=== PATIENT | female | born 1960 | race Caucasian/White ===

== ENCOUNTER → 2019-12-11 12:06 | Outpatient (CLI) | payer OTHER, SELFPAY ==
--- NOTE | ~2019-12-11 | US_ITS ---
EXAMINATION: US right upper quadrant EXAM DATE: 12/11/2019 12:23 INDICATION: Calculus of bile duct without cholangitis or cholecystitis. Right upper quadrant pain. TECHNIQUE: Multiple grayscale and Doppler images of the abdomen right upper quadrant were obtained (b y a technologist who performed the scan) and subsequently reviewed. There is no prior study for renetta beyer. FINDINGS: The pancreatic head and body are normal in appearance. The pancreatic tail is not visualized. The l iver has normal echogenicity and contour. There are no focal liver lesions identified. There is no evidence of intrahepatic biliary duct dilation. Portal venous flow was seen in the hepatopedal, nor mal direction and has normal Doppler waveform. No right-sided hydronephrosis. Common bile duct measures 4 mm, which is normal. The gallbladder wall is normal in thickness, with ex pected amount of distention. No sonographic evidence of pericholecystic fluid. There is no cholelit hiases. Technologist performing exam reports patient did not demonstrate sonographic Barclay's sign. Please note that this sign is less reliable in patients who have received pain medication. IMPRESSION: 1. Unremarkable abdominal ultrasound exam. Reviewed, dictated and finalized at location B.
== END ==
PROVIDERS: PCP Family Medicine; Visit Provider Family Medicine
DX: K80.50 Calculus of bile duct without cholangitis or cholecystitis without obstruction (principal)
CPT/HCPCS: 76705

== ENCOUNTER 2020-05-13 15:02 | Emergency (ER) | payer OTHER, SELFPAY ==
--- NOTE | ~2020-05-13 | XR_ITS ---
EXAMINATION: XR foot LT min 3V DATE: 05/13/2020 15:23 INDICATION: Left foot pain laterally. TECHNIQUE: 4 views of left foot were obtained. COMPARISON: None. FINDINGS: Bone alignment is normal. No fracture. There is mild osteoarthritis of first metatarsophala ngeal joint and some of the interphalangeal joints and midfoot joints. There are enthesophytes at the posterior and plantar aspects of calcaneal tuberosity. IMPRESSION: 1. Mild polyarticular osteoarthritis. Reviewed, dictated and finalized at location A. EOTYPE FINISHER
--- NOTE | 2020-05-13 15:06 | ED.EXTPRO ---
HPI - Extremity Problem General Chief complaint: Extremity Injury, Lower Stated complaint: lt foot pain Time Seen by Provider: 05/13/20 15:12 Source: patient and RN notes reviewed Mode of arrival: ambulatory Limitations: no limitations History of Present Illness HPI Narrative: 60-year-old female presents with concern for left foot pain. Reports pain at the lateral edge of the foot below the ankle that radiates distally. She denies any known injury or trauma. Reports history of stress fracture in her right foot. Denies bruising, redness, swelling. Denies intervention. Reports pain at rest, worsening pain with range of motion and weightbearing. MD Complaint: extremity pain Related Data Home Medications Medication Instructions Recorded Confirmed aspirin 325 mg tablet 325 mg PO DAILY 02/06/19 09/01/19 Allergies Allergy/AdvReac Type Severity Reaction Status Date / Time levofloxacin Allergy Mild unknown Verified 05/13/20 15:07 clarithromycin Allergy Unknown unknown Verified 05/13/20 15:07 telithromycin Allergy Unknown unknown Verified 05/13/20 15:07 MICROFLEXIN Allergy Unknown unknown Uncoded 05/13/20 15:07 Review of Systems Review of Systems: Narrative: CONSTITUTIONAL: Denies malaise, chills, sweats, or fever. SKIN: Denies abrasions, lacerations, erythema MUSCULOSKELETAL: Reports left lateral foot pain, denies edema NEUROLOGIC: Denies numbness, weakness All systems reviewed & are unremarkable except as noted in HPI and below PMFSH Past Medical History Medical History (Updated 05/13/20 @ 15:34 by Mandi Ortiz NP) Biliary colic History of vaginal delivery x 2 Viral gastroenteritis Surgical History Surgical History History of angioplasty History of hysterectomy History of myomectomy Family History Family History Mother Hypertension Patient's mother is in good health Grandparent Acute myocardial infarction Family history of malignant melanoma Family history of lung cancer Family history of primary malignant neoplasm of liver Family history of malignant neoplasm of breast Father Family history of throat cancer Social History Social History Smoking status: Heavy tobacco smoker Second hand tobacco smoke exposure: No Alcohol intake: never Comments At time of signature, agree with nursing past medical, surgical, social and family history. There is no relevant family history pertinent to the presenting complaint Exam Narrative: Exam Narrative: GENERAL: Well-appearing, well-nourished, and in no acute distress. HEAD: Normocephalic, atraumatic. EYES: PERRLA, conjunctivae clear NECK: Supple. CHEST: Speaks in full sentences. No respiratory distress. HEART: Regular rate and rhythm. Normal and equal peripheral pulses. EXTREMITIES: Left foot and digits have normal strength and sensation, normal range of motion. No edema or ecchymosis. 5/5 strength with ankle and digit flexion and extension. Normal sensation with sensitivity to light touch and pain. No point tenderness. Pain radiating from the proximal lateral dorsal aspect of the foot to the distal aspect of the foot, worse with flexion of ankle, no pain with flexion of digits. No open wounds, no skin tenting, no devitalized tissue or atrophy, no trophic changes, no obvious deformity, alignment normal, nearby joints and structures intact. Distal pulses palpable and equal bilaterally, skin warm, dry, pink. Capillary refill less than 3 seconds. SKIN: Warm, dry, no rash. NEURO: Alert and oriented x3. PSYCH: Normal mood and affect Course Course Emergency Course: Patient is aware of diagnosis, understands and agrees to treatment plan. Anticipatory guidance given. Patient agrees to follow-up as directed and is aware of reasons to seek care at the emergency department. Portions of this re
[2020-05-13 15:07] VITALS: BP 118/68; PULSE 65; RESP 24; TEMP 36.7; O2SAT 100
== END 2020-05-13 15:45 | disposition home or self-care (01) ==
PROVIDERS: Emergency Provider Nurse Practitioner; PCP Family Medicine
DX: M79.672 Pain in left foot (principal); F17.200 Nicotine dependence, unspecified, uncomplicated; Z95.1 Presence of aortocoronary bypass graft
CPT/HCPCS: 73630; 99213; G0463

== ENCOUNTER 2020-08-18 15:45 | Outpatient (CLI) | payer OTHER, SELFPAY ==
--- NOTE | ~2020-08-18 | MM_ITS ---
EXAMINATION: MM screening mirna BI w yvonne HISTORY: Screening mammogram TECHNIQUE: Craniocaudal and mediolateral oblique 3-D tomosynthesis images were obtained and synthetic 2-D images were generated. CAD analysis was submitted and interpreted. COMPARISON: No prior mammogram is available for comparison at this institution. BREAST PARENCHYMAL COMPOSITION: The breasts are almost entirely fatty. FINDINGS: RIGHT BREAST: There is no evidence of suspicious mass, calcification, or architectural distortion to suggest malignancy. LEFT BREAST: There is a possible mass in the subareolar aspect of the breast best appreciated on the craniocaudal view. There is also questionable architectural distortion in the middle third of the giovani ast at the 12:00 location. IMPRESSION: 1. Left breast findings as described above. 2. Additional mammographic views and possible breast ultrasound are recommended. BI-RADS Category 0: Incomplete: Needs additional imaging evaluation. Reviewed, dictated and finalized at location A. IMPRESSION: 1. Left breast findings as described above. 2. Additional mammographic views and possible breast ultrasound are recommended . BI-RADS Category 0: Incomplete: Needs additional imaging evaluation.
== END 2020-08-18 15:46 | disposition home or self-care (01) ==
LOC: ANHIMG 15:47
PROVIDERS: PCP Family Medicine; Visit Provider Student in an Organized Health Care Education/Training Program
DX: Z12.31 Encounter for screening mammogram for malignant neoplasm of breast (principal); R92.8 Other abnormal and inconclusive findings on diagnostic imaging of breast
CPT/HCPCS: 77063; 77067

== ENCOUNTER 2020-10-05 12:52 | Outpatient (CLI) | payer OTHER, SELFPAY ==
--- NOTE | ~2020-10-05 | MMUS_ITS ---
EXAMINATION: MM diagnostic mirna LT w yvonne, US breast LT limited HISTORY: Follow-up possible left breast mass TECHNIQUE: Additional 3-D tomosynthesis images of the left breast were performed and synthetic 2-D im ages were generated. CAD analysis was submitted and interpreted. High resolution Limited left breast ultrasound was performed. COMPARISON: 08/18/2020 BREAST PARENCHYMAL COMPOSITION: BREAST PARENCHYMAL COMPOSITION: There are scattered areas of fibroglandular density. FINDINGS: MAMMOGRAPHIC FINDINGS: No discrete mass, architectural distortion or suspicious calcifications are identified to suggest mal ignancy. ULTRASOUND: Limited left breast ultrasound: Normal heterogeneous echotexture without focal solid or cystic mass. IMPRESSION: 1. No evidence for malignancy in the left breast. 2. Routine yearly screening mammogram and regular clinical breast examination are recommended. BI-RADS Category 1: Negative Reviewed, dictated and finalized at location A. IMPRESSION: 1. No evidence for malignancy in the left breast. 2. Routine yearly screening mammogram and regular clinical breast examination a re recommended. BI-RADS Category 1: Negative
== END 2020-10-05 12:53 | disposition home or self-care (01) ==
LOC: ANHIMG 12:53
PROVIDERS: PCP Family Medicine; Visit Provider Student in an Organized Health Care Education/Training Program
DX: R92.8 Other abnormal and inconclusive findings on diagnostic imaging of breast (principal)
CPT/HCPCS: 76642; 77061; 77065; G0279

== ENCOUNTER → 2021-04-20 14:13 | Outpatient (CLI) | payer OTHER, SELFPAY ==
--- NOTE | ~2021-04-20 | XR_ITS ---
XR tibia fibula RT 2V DATE: 04/20/2021 14:31 INDICATION: Right leg posterior and medial pain. No injury. TECHNIQUE: AP and lateral views COMPARISON: None FINDINGS: There is enthesopathy of the patella at the patellar tendon insertion. There is mild plantar and posterior calcaneal enthesopathy. No fracture or dislocation, periosteal reaction or bone destruction of the tibia or fibula. Normal al ignment at the knee and ankle joints. IMPRESSION: No significant abnormality of the tibia or fibula Plantar and posterior calcaneal enthesopathy Reviewed, dictated and finalized at location B. 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
== END ==
PROVIDERS: PCP Family Medicine; Visit Provider Family Medicine
DX: M79.604 Pain in right leg (principal); M77.31 Calcaneal spur, right foot
CPT/HCPCS: 73590

== ENCOUNTER 2021-06-08 15:07 | Outpatient (CLI) | payer OTHER, SELFPAY ==
--- NOTE | ~2021-06-08 | XR_ITS ---
EXAMINATION: XR hip RT 2V w AP pelvis DATE: 06/08/2021 15:31 INDICATION: Right posterior hip pain. TECHNIQUE: An anteroposterior view of the pelvis and 2 views of right hip were obtained. COMPARISON: CT abdomen and pelvis 07/31/2011 FINDINGS: There is lumbar dextrocurvature and severe spondylosis. No fracture. There is mild osteoart hritis of the hips. IMPRESSION: 1. Mild osteoarthritis of the hips. Reviewed, dictated and finalized at location A.
== END 2021-06-08 15:08 | disposition home or self-care (01) ==
PROVIDERS: PCP Family Medicine; Visit Provider Family Medicine
DX: M16.0 Bilateral primary osteoarthritis of hip (principal)
CPT/HCPCS: 73502

== ENCOUNTER 2021-06-09 18:02 | Outpatient (CLI) | payer OTHER, SELFPAY ==
--- NOTE | ~2021-06-09 | XR_ITS ---
XR lumbar spine min 4V DATE: 06/09/2021 18:22 INDICATION: Low back pain. Lumbago with sciatica. TECHNIQUE: AP, lateral, bilateral oblique views, coned lateral lumbosacral view COMPARISON: None FINDINGS: There is diffuse osteopenia. There is mild dextroscoliosis of the lumbar and lower thoracic spine. There is minimal grade 1 anterolisthesis at L3-4 and L4-5 due to degenerative change at the apophysea l joints. No spondylolysis is evident. The included lower thoracic and lumbar pedicles are intact. No fracture or bone destruction or spondy lolisthesis. There is prominent degenerative disc disease at L5-S1, moderate loss of interspace height at L1 to an d L3-4. The sacroiliac joints are intact. IMPRESSION: Mild dextro scoliosis Osteopenia Multilevel degenerative disc disease, radius at L5-S1 Degenerative changes apophyseal joints with minimal grade 1 anterolisthesis at L3-4 and L4-5 Reviewed, dictated and finalized at location A.
== END 2021-06-09 18:03 | disposition home or self-care (01) ==
PROVIDERS: PCP Family Medicine; Visit Provider Family Medicine
DX: M85.88 Other specified disorders of bone density and structure, other site (principal); M51.37 Other intervertebral disc degeneration, lumbosacral region
CPT/HCPCS: 72110

== ENCOUNTER 2021-10-18 06:53 | Outpatient (CLI) | payer OTHER, SELFPAY ==
--- NOTE | ~2021-10-18 | CT_ITS ---
EXAMINATION: CT lung screening DATE: 10/18/2021 07:19 INDICATION: Smoker. Personal history of tobacco dependence. TECHNIQUE: Computed tomography (CT) of the chest was performed without intravenous contrast. The dose -length product was 75.14 mGy-cm. Automated exposure control and iterative reconstruction technique w ere employed. COMPARISON: None FINDINGS: No significant pleural or pericardial effusion. Heart size normal. There is evidence for ch ronic granulomatous disease in the mediastinum and lung parenchyma. No thoracic lymphadenopathy. Ther e is atherosclerosis of the aorta and coronary arteries. The upper abdomen is unremarkable. There is mild emphysema. There are a few small noncalcified pulmonary nodules measuring 2 mm or less. No focal consolidation. No endobronchial lesions. No pneumothorax. Moderate thoracic spondylosis with accentu ated thoracic kyphosis. IMPRESSION: 1. Lung-RADS category 2: Benign appearance or behavior. Continue annual screening with noncontrast lo w-dose chest CT in 12 months. Reviewed, dictated and finalized at location B. IMPRESSION: 1. Lung-RADS category 2: Benign appearance or behavior. Continue annual screeni ng with noncontrast low-dose chest CT in 12 months.
== END 2021-10-18 06:54 | disposition home or self-care (01) ==
PROVIDERS: PCP Family Medicine; Visit Provider Nurse Practitioner Family
DX: Z12.2 Encounter for screening for malignant neoplasm of respiratory organs (principal); Z87.891 Personal history of nicotine dependence
CPT/HCPCS: 71271

== ENCOUNTER 2021-12-21 18:36 | Emergency (ER) | payer OTHER, SELFPAY ==
--- NOTE | ~2021-12-21 | XR_ITS ---
EXAMINATION: XR chest 2V Exam Date/Time: 12/21/2021 18:49 CDT HISTORY: cough x 3 days, smoker Comparison: 07/30/2017. RESULT: Lines, tubes, and devices: None. Lungs and pleura: Clear. Cardiomediastinal silhouette: Stable. Other: No acute osseous or upper abdominal finding. IMPRESSION: No acute cardiopulmonary process. Reviewed, dictated and finalized at location K.
[2021-12-21 18:43] VITALS: BP 118/64; PULSE 71; RESP 16; TEMP 36.4; O2SAT 98
--- NOTE | 2021-12-21 18:52 | ED.URI ---
HPI - URI/Sore Throat General Chief Complaint: Upper Respiratory Infection Stated Complaint: cough, chest pain Time Seen by Provider: 12/21/21 18:57 History of Present Illness HPI Narrative: 66 y/o female presented for c/o cough and chest congestion for about 3 days. States chest feels tight with breathing. Cough was productive at onset. Her grandson who lives with her was recently diagnosed with RSV and pneumonia. Patient smokes 1PPD >50 years. Denies associated chest pain, palpitations, shortness of breath, wheezing, dizziness, n/v/d/f/c. Not taking anything for symptoms. Hx HTN, CAD and PTCI. Related Data Home Medications Medication Instructions Recorded Confirmed cholecalciferol (vitamin D3) 125 5,000 unit PO DAILY 08/30/20 12/21/21 mcg (5,000 unit) capsule risankizumab-rzaa 75 mg/0.83 mL 150 mg subcut . Q three-month 08/30/20 12/21/21 subcutaneous syringe (Skyrizi) mecobalamin (vitamin B12) 1,000 2,000 mcg sublingual DAILY 10/05/21 12/21/21 mcg disintegrating tablet,sublingual aspirin 81 mg tablet,delayed 81 mg PO DAILY 12/21/21 12/21/21 release atorvastatin 40 mg tablet 80 mg PO DAILY 12/21/21 12/21/21 bupropion HCl (smoking deter) 150 150 mg PO BID 12/21/21 12/21/21 mg tablet,12 hr sustained-release(smoking deterrent) Allergies Allergy/AdvReac Type Severity Reaction Status Date / Time levofloxacin Allergy Mild unknown Verified 12/21/21 18:48 clarithromycin Allergy Unknown unknown Verified 12/21/21 18:48 telithromycin Allergy Unknown unknown Verified 12/21/21 18:48 MICROFLEXIN Allergy Unknown unknown Uncoded 10/21/21 14:15 [facility] Past Medical History Medical History Acute pain of right lower extremity Acute right hip pain X-ray of the right hip on 06/09/2021 reveals mild osteoarthritis with severe lumbar spondylosis noted. Acute right-sided low back pain with sciatica X-ray of the lumbar spine on 06/09/2021 with diffuse osteopenia, mild scoliosis, significant degenerative disc disease at L5-S1 with moderate degenerative changes throughout. Acute sinusitis, unspecified B12 deficiency Biliary colic BMI 29.0-29.9,adult BMI 30.0-30.9,adult BMI 31.0-31.9,adult Colon cancer screening History of vaginal delivery x 2 Hyperlipidemia Hypertension CHING (obstructive sleep apnea) Screening for lung cancer Snoring Strain of right calf muscle Viral gastroenteritis Vitamin D deficiency Surgical History Surgical History History of angioplasty History of hysterectomy History of myomectomy Family History Family History Mother Hypertension Patient's mother is in good health Grandparent Acute myocardial infarction Family history of malignant melanoma Family history of lung cancer Family history of primary malignant neoplasm of liver Family history of malignant neoplasm of breast Father Family history of throat cancer Social History Social History Smoking packs per day: 1 Smoking cigarettes per day: 20.0 Years smoked: 33 Smoking pack-years: 33.00 Smoking status: Current every day smoker Tobacco type: cigarettes Second hand tobacco smoke exposure: No Alcohol intake: never Substance use: never Substance use type: does not use Course Course Level of Care: Express Care Visit Vital Signs Vital signs: Vital Signs Temperature 97.6 F 12/21/21 18:43 Pulse Rate 71 12/21/21 18:43 Respiratory Rate 16 12/21/21 18:43 Blood Pressure 118/64 12/21/21 18:43 Pulse Oximetry 98 12/21/21 18:43 Temperature 97.6 F 12/21/21 18:43 Pulse Rate 71 12/21/21 18:43 Respiratory Rate 16 12/21/21 18:43 Blood Pressure 118/64 12/21/21 18:43 Pulse Oximetry 98 12/21/21 18:43 MDM - URI/Sore Throat MDM Narrative Medical decisi
== END 2021-12-21 19:10 | disposition home or self-care (01) ==
PROVIDERS: Emergency Provider Nurse Practitioner Family; PCP Family Medicine
DX: J40 Bronchitis, not specified as acute or chronic (principal); F17.210 Nicotine dependence, cigarettes, uncomplicated; E78.5 Hyperlipidemia, unspecified; I10 Essential (primary) hypertension; G47.33 Obstructive sleep apnea (adult) (pediatric); E55.9 Vitamin D deficiency, unspecified; E53.8 Deficiency of other specified B group vitamins
CPT/HCPCS: 71046; 99213; G0463

== ENCOUNTER 2022-01-30 16:09 | Emergency (ER) | payer OTHER, SELFPAY ==
--- NOTE | 2022-01-30 16:12 | ED.URI ---
HPI - URI/Sore Throat General Chief Complaint: Chest Pain Stated Complaint: CHEST PAIN Time Seen by Provider: 01/30/22 16:16 Source: patient and RN notes reviewed History of Present Illness HPI Narrative: Patient is a 61-year-old female who presents to urgent care with complaints of substernal chest pain that started today. Patient states that it feels like pressure and is exacerbated with movement. Patient does have a history of coronary artery disease with 1 stent placed. Patient states that she did take her medication today. Patient is not currently on a blood thinner with the exception of 81 mg aspirin. Patient denies any radiation of the pain. No other acute complaints. No acute distress noted. Patient aware of the plan of care. Some parts of this dictation were generated by voice recognition software and may contain typographical and/or grammatical inaccuracies. Related Data Home Medications Medication Instructions Recorded Confirmed cholecalciferol (vitamin D3) 125 5,000 unit PO DAILY 08/30/20 01/30/22 mcg (5,000 unit) capsule risankizumab-rzaa 75 mg/0.83 mL 150 mg subcut . Q three-month 08/30/20 01/30/22 subcutaneous syringe (Skyrizi) mecobalamin (vitamin B12) 1,000 2,000 mcg sublingual DAILY 10/05/21 01/30/22 mcg disintegrating tablet,sublingual aspirin 81 mg tablet,delayed 81 mg PO DAILY 12/21/21 01/30/22 release atorvastatin 40 mg tablet 80 mg PO DAILY 12/21/21 01/30/22 Allergies Allergy/AdvReac Type Severity Reaction Status Date / Time levofloxacin Allergy Mild unknown Verified 12/21/21 18:48 clarithromycin Allergy Unknown unknown Verified 12/21/21 18:48 telithromycin Allergy Unknown unknown Verified 12/21/21 18:48 MICROFLEXIN Allergy Unknown unknown Uncoded 10/21/21 14:15 Review of Systems Review of Systems: CONSTITUTIONAL: Denies fever, chills, or sweats. EYES: Denies visual changes, redness, or discharge. ENT: Denies rhinorrhea, congestion, sore throat, or otalgia. CARDIOVASCULAR: Reports of chest pain RESPIRATORY: Denies cough or dyspnea. GASTROINTESTINAL: Denies abdominal pain, nausea, vomiting, or diarrhea. GENITOURINARY: Denies dysuria or hematuria. SKIN: Denies rash or itching. MUSCULOSKELETAL: Denies back pain, joint pain, or myalgia. NEUROLOGIC: Denies headache, numbness, or weakness. All other systems reviewed are negative, except as documented in HPI. [facility] Past Medical History Medical History Acute pain of right lower extremity Acute right hip pain X-ray of the right hip on 06/09/2021 reveals mild osteoarthritis with severe lumbar spondylosis noted. Acute right-sided low back pain with sciatica X-ray of the lumbar spine on 06/09/2021 with diffuse osteopenia, mild scoliosis, significant degenerative disc disease at L5-S1 with moderate degenerative changes throughout. Acute sinusitis, unspecified B12 deficiency Biliary colic BMI 29.0-29.9,adult BMI 30.0-30.9,adult BMI 31.0-31.9,adult Colon cancer screening History of vaginal delivery x 2 Hyperlipidemia Hypertension CHING (obstructive sleep apnea) Screening for lung cancer Snoring Strain of right calf muscle Viral gastroenteritis Vitamin D deficiency Surgical History Surgical History History of angioplasty History of hysterectomy History of myomectomy Family History Family History Mother Hypertension Patient's mother is in good health Grandparent Acute myocardial infarction Family history of malignant melanoma Family history of lung cancer Family history of primary malignant neoplasm of liver Family history of malignant neoplasm of breast Father Family history of throat cancer Social History Social History Smoking packs per day: 1 Smoking cigarettes per day: 20.0 Years smo
[2022-01-30 16:14] VITALS: BP 113/64; PULSE 60; RESP 16; TEMP 35.9; O2SAT 100
--- NOTE | 2022-01-30 16:42 | ECG_ITS ---
Measurements Intervals [place] Rate: 60 P: 64 [place]: 171 QRS: 67 QRSD: 94 T: 45 QT: 417 QTc: 418 Interpretive Statements SINUS RHYTHM POSSIBLE LEFT ATRIAL ENLARGEMENT INCOMPLETE RIGHT BUNDLE BRANCH BLOCK BORDERLINE ECG NO PREVIOUS ECG AVAILABLE FOR COMPARISON Electronically Signed On 01-30-2022 17:55:29 SPECIAL EDUCATION TEACHING ASSISTANT by Shashi Sterling D.O.
== END 2022-01-30 16:32 | disposition short-term general hospital (02) ==
PROVIDERS: Emergency Provider Nurse Practitioner Family; PCP Family Medicine
DX: R07.9 Chest pain, unspecified (principal); I25.10 Atherosclerotic heart disease of native coronary artery without angina pectoris; E78.5 Hyperlipidemia, unspecified; I10 Essential (primary) hypertension; F17.210 Nicotine dependence, cigarettes, uncomplicated; Z79.82 Long term (current) use of aspirin
CPT/HCPCS: 93005; 99213; G0463

== ENCOUNTER 2022-01-30 16:52 | Emergency (ER) | payer OTHER, SELFPAY ==
[2022-01-30] VITALS (15 sets, daily range): BP systolic 119–167; BP diastolic 62–99; PULSE 61–81; RESP 17–26; TEMP 36.6–36.8; O2SAT 97–99
--- NOTE | ~2022-01-30 | CT_ITS ---
EXAMINATION: CT abdomen pelvis w con DATE: 01/30/2022 22:25 INDICATION: Epigastric abdominal pain TECHNIQUE: Computed tomography (CT) of the abdomen and pelvis was performed with 100 mL Omnipaque-350 intravenous contrast. Automated exposure control and iterative reconstruction technique were employe d. The dose-length product was 462.61 mGy-cm. COMPARISON: 07/31/2011, x-ray chest 01/30/2022. FINDINGS: Lower thorax: Diffuse mild reticulonodular opacities as can be seen with bronchiolitis. Coronary ana rosa ry calcification. Liver: Normal. Biliary/Gallbladder: Gallbladder is normal. No bile duct dilation. Pancreas: No mass or duct dilation. Spleen: Granulomatous calcifications Adrenals:No mass. Kidneys: Multiple left renal hypodensities, too small to characterize. No obstructing calculi or hydr onephrosis. GI tract: Distal esophageal and gastric wall edema. No small or large bowel dilation. Normal appendix . Diverticulosis without diverticulitis. Mesentery/Peritoneum: No ascites, mass, or free air. Retroperitoneum: No mass. Atherosclerotic abdominal aortic and/or arterial calcifications. Pelvis: Normal-appearing urinary bladder. Uterus is absent. Soft Tissues: Soft tissues and body wall unremarkable. Bones: No acute osseous finding. Unchanged anterior right femoral neck benign bone lesion. IMPRESSION: Respiratory bronchiolitis. Esophagitis/gastritis. Otherwise, no acute abdominopelvic process detected . Reviewed, dictated and finalized at location K. EGE ADMISSIONS COUNSELOR IMPRESSION: Respiratory bronchiolitis. Esophagitis/gastritis. Otherwise, no acute abdominop elvic process detected.
--- NOTE | ~2022-01-30 | XR_ITS ---
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 Comparison: 12/21/2021. RESULT: Lines, tubes, and devices: None. Lungs and pleura: Diffuse reticulonodular opacities. No focal consolidation, pneumothorax, or large effusion. Cardiomediastinal silhouette: Stable. Other: No acute osseous or upper abdominal finding. IMPRESSION: Pulmonary opacities may represent bronchiolitis, as can be seen with atypical infection, asthma, aspi ration, and small airways disease. Reviewed, dictated and finalized at location K. ER SECURITY ADMINISTRATOR IMPRESSION: Pulmonary opacities may represent bronchiolitis, as can be seen with atypical i nfection, asthma, aspiration, and small airways disease.
--- NOTE | 2022-01-30 17:39 | ECG_ITS ---
Measurements Intervals [place] Rate: 62 P: 66 [place]: 184 QRS: 69 QRSD: 96 T: 47 QT: 416 QTc: 423 Interpretive Statements SINUS RHYTHM POSSIBLE LEFT ATRIAL ENLARGEMENT INCOMPLETE RIGHT BUNDLE BRANCH BLOCK BORDERLINE ECG NO PREVIOUS ECG AVAILABLE FOR COMPARISON Electronically Signed On 01-31-2022 8:50:09 MOLD FINISHER by Shashi Sterling D.O.
[2022-01-30 17:56] LABS: Basophils Absolute Auto 0.1 K/mm3 (0.0-0.1); Basophils Percent Auto 0.8 % (0.2-1.2); Eosinophils Absolute Auto 0.3 K/mm3 (0-0.3); Eosinophils Percent Auto 2.3 % (0-4.4); Hematocrit 47.2 % (37.0-47.0); Hemoglobin 15.5 g/dL (12.0-15.0); Immature Granulocyte Absolute 0.03 K/mm3 (0.00-0.031); Immature Granulocyte Percent A 0.3 % (0-0.5); Lymphocytes Absolute Auto 3.24 K/mm3 (0.9-3.2); Lymphocytes Percent Auto 29.7 % (18.3-44.2); Mean Corpuscular HGB Conc 32.8 g/dl (32-36); Mean Corpuscular Hemoglobin 30.3 pg (26-34); Mean Corpuscular Volume 92.2 fl (80-100); Mean Platelet Volume 12.4 fl (7.4-10.4); Monocytes Absolute Auto 0.7 K/mm3 (0.1-0.6); Monocytes Percent Auto 6.8 % (2.6-8.5); Neutrophils Absolute Auto 6.6 K/mm3 (1.3-6.7); Neutrophils Percent Auto 60.1 % (45.5-73.1); Platelet Count Result 175 k/mm3 (150-375); Red Blood Count 5.12 M/mm3 (4.2-5.4); White Blood Count 10.9 K/mm3 (4.5-10.0)
[2022-01-30 18:07] LABS: Alanine Aminotransferase 13 U/L (6-35); Albumin Level 4.2 g/dL (3.5-5.1); Alkaline Phosphatase 102 U/L (38-126); Anion Gap 10 mmol/L (8-16); Aspartate Amino Transferase 20 U/L (14-36); Bilirubin,Total 0.5 mg/dL (0.2-1.3); Blood Urea Nitrogen 17 mg/dL (7-17); Calcium 8.7 mg/dL (8.4-10.2); Carbon Dioxide 24 mmol/L (22-30); Chloride 101 mmol/L (98-107); Estimated CRCL calculation 51 ml/min; Estimated Glomerular Filt Rate > 60; Glucose 100 mg/dL (65-110); Lipase 62 U/L (23-300); Sodium 135 mmol/L (137-145)
[2022-01-30 18:12] LABS: INR 1.1; Prothrombin Time 13.5 Seconds (11.1-14.7)
[2022-01-30 18:13] LABS: Partial Thromboplastin Time 31.2 SECONDS (22.3-36.8)
[2022-01-30 18:18] LABS: Troponin I < 0.012 ng/mL (0.000-0.034)
--- NOTE | 2022-01-30 21:52 | ED.ABDPAIN ---
HPI - Abdominal Pain General Chief Complaint: Chest Pain Stated Complaint: CHEST PAIN Time Seen by Provider: 01/30/22 21:29 History of Present Illness HPI narrative: This is a 61-year-old female with past medical history of hypertension and coronary artery disease, who presents emergency department complaining of sharp epigastric abdominal pain beginning approximately 7 hours ago. 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 It is aggravated by movement and alleviated with rest. She says this is not similar to previous chest pain. Related Data Home Medications Medication Instructions Recorded Confirmed cholecalciferol (vitamin D3) 125 5,000 unit PO DAILY 08/30/20 01/30/22 mcg (5,000 unit) capsule risankizumab-rzaa 75 mg/0.83 mL 150 mg subcut . Q three-month 08/30/20 01/30/22 subcutaneous syringe (Skyrizi) mecobalamin (vitamin B12) 1,000 2,000 mcg sublingual DAILY 10/05/21 01/30/22 mcg disintegrating tablet,sublingual aspirin 81 mg tablet,delayed 81 mg PO DAILY 12/21/21 01/30/22 release atorvastatin 40 mg tablet 80 mg PO DAILY 12/21/21 01/30/22 Allergies Allergy/AdvReac Type Severity Reaction Status Date / Time levofloxacin Allergy Mild unknown Verified 12/21/21 18:48 clarithromycin Allergy Unknown unknown Verified 12/21/21 18:48 telithromycin Allergy Unknown unknown Verified 12/21/21 18:48 MICROFLEXIN Allergy Unknown unknown Uncoded 10/21/21 14:15 Review of Systems Review of Systems: CONSTITUTIONAL: Denies fever, chills, or sweats. EYES: Denies visual changes, redness, or discharge. ENT: Denies rhinorrhea, congestion, sore throat, or otalgia. CARDIOVASCULAR: Denies chest pain, palpitations, or edema. RESPIRATORY: Denies cough or dyspnea. GASTROINTESTINAL: Epigastric abdominal pain denies nausea, vomiting, or diarrhea. GENITOURINARY: Denies dysuria or hematuria. SKIN: Denies rash or itching. MUSCULOSKELETAL: Denies back pain, joint pain, or myalgia. NEUROLOGIC: Denies headache, numbness, dizziness, or weakness. PSYCHIATRIC: Denies anxiety or depression. [facility] Past Medical History Medical History Acute pain of right lower extremity Acute right hip pain X-ray of the right hip on 06/09/2021 reveals mild osteoarthritis with severe lumbar spondylosis noted. Acute right-sided low back pain with sciatica X-ray of the lumbar spine on 06/09/2021 with diffuse osteopenia, mild scoliosis, significant degenerative disc disease at L5-S1 with moderate degenerative changes throughout. Acute sinusitis, unspecified B12 deficiency Biliary colic BMI 29.0-29.9,adult BMI 30.0-30.9,adult BMI 31.0-31.9,adult Colon cancer screening History of vaginal delivery x 2 Hyperlipidemia Hypertension CHING (obstructive sleep apnea) Screening for lung cancer Snoring Strain of right calf muscle Viral gastroenteritis Vitamin D deficiency Surgical History Surgical History History of angioplasty History of hysterectomy History of myomectomy Family History Family History Mother Hypertension Patient's mother is in good health Grandparent Acute myocardial infarction Family history of malignant melanoma Family history of lung cancer Family history of primary malignant neoplasm of liver Family history of malignant neoplasm of breast Father Family history of throat cancer Social History Social History Smoking packs per day: 1 Smoking cigarettes per day: 20.0 Years smoked: 33 Smoking pack-years: 33.00 Smoking status: Current every day smoker Tobacco type: cigarettes Second hand tobacco smoke exposure: No Alcohol intake: never Substance use: never Substance use type: does not use Exam Narrative: GENERAL: Well-developed, well-nourished, and in no acute d
[2022-01-30] MEDS: BELLADONNA ALK/PHENOB ELIX 10 ML, MAG HYDROX/ALUMINUM HYD/SIMETH 30 ML, LIDOCAINE HCL 2... PO (22:45)
[2022-01-30] MEDS: FAMOTIDINE 20 MG/2 ML VIAL IV PUSH (22:46)
--- NOTE | 2022-01-30 22:55 | PC.NURSE ---
Aspirin discontinued via Dr. Hurt verbal order
[2022-01-30 23:43] LABS: Troponin I < 0.012 ng/mL (0.000-0.034)
== END 2022-01-30 23:52 | disposition home or self-care (01) ==
PROVIDERS: Emergency Medicine; Emergency Provider Preventive Medicine Aerospace Medicine; PCP Family Medicine
DX: K29.70 Gastritis, unspecified, without bleeding (principal); I10 Essential (primary) hypertension; I25.10 Atherosclerotic heart disease of native coronary artery without angina pectoris; E78.5 Hyperlipidemia, unspecified; G47.33 Obstructive sleep apnea (adult) (pediatric); E55.9 Vitamin D deficiency, unspecified; E53.8 Deficiency of other specified B group vitamins; Z79.82 Long term (current) use of aspirin; Z98.61 Coronary angioplasty status; Z90.710 Acquired absence of both cervix and uterus; F17.210 Nicotine dependence, cigarettes, uncomplicated; I45.10 Unspecified right bundle-branch block; R94.31 Abnormal electrocardiogram [ECG] [EKG]; J21.9 Acute bronchiolitis, unspecified
CPT/HCPCS: 36415; 71046; 74177; 80053; 83690; 84484; 85025; 85610; 85730; 93005; 96374; 99284; A9270; Q9967

== ENCOUNTER → 2022-10-19 16:52 | Outpatient (CLI) | payer OTHER, SELFPAY ==
--- NOTE | ~2022-10-19 | XR_ITS ---
EXAMINATION: XR chest 2V Exam Date/Time: 10/19/2022 16:53 CDT HISTORY: J20.9 - Acute bronchitis, unspecified Comparison: 01/30/2022. RESULT: Lines, tubes, and devices: None. Lungs and pleura: Stable mild diffuse reticulonodular opacities. No focal consolidation. Calcified r ight upper lobe granuloma. Cardiomediastinal silhouette: Stable. Other: No acute osseous or upper abdominal finding. IMPRESSION: Pulmonary opacities may represent bronchiolitis, as can be seen with atypical infection, asthma, aspi ration, and small airways disease. Reviewed, dictated and finalized at location K. IMPRESSION: Pulmonary opacities may represent bronchiolitis, as can be seen with atypical i nfection, asthma, aspiration, and small airways disease.
== END ==
PROVIDERS: PCP Family Medicine; Visit Provider Family Medicine
DX: J20.9 Acute bronchitis, unspecified (principal)
CPT/HCPCS: 71046

== ENCOUNTER 2023-10-11 14:40 | Outpatient (CLI) | payer OTHER, SELFPAY ==
--- NOTE | ~2023-10-11 | MR_ITS ---
MRI of the lumbar spine Clinical History: Back pain Technique: Axial T2-weighted images, and sagittal T1-weighted, T2-weighted, and T2 fat-sat images wer e acquired. Findings: No acute fracture. There is minimal grade 1 anterolisthesis of L3 over L4. No suspicious naila ne marrow signal reality seen. At L1-L2, there is no disc bulge or herniation. There is mild facet arthropathy. No central canal dar nosis. Probable mild bilateral neural foraminal narrowing. At L2-L3, there is no disc bulge or herniation. There is moderate to advanced facet arthropathy. No c entral canal stenosis. There is mild bilateral neural foraminal narrowing. L3-L4, there is diffuse disc bulge/uncovering with severe facet arthropathy. There is minimal central canal stenosis. There is mild right neural foraminal narrowing. Left neural foramen preserved. At L4-L5, there is minimal disc bulge and severe facet arthropathy. No central canal stenosis. There is mild left neural foraminal narrowing, and moderate right neural foraminal narrowing. At L5-S1, there is diffuse disc bulge and moderate to advanced facet arthropathy. No central canal st enosis. There is mild to moderate right neural foraminal narrowing. Left neural foramen preserved. Paravertebral soft tissues are unremarkable. Impression: Mild to moderate degenerative spondylitic changes, as above. Reviewed, dictated and finalized at [facility]. Impression: Mild to moderate degenerative spondylitic changes, as above.
== END 2023-10-11 14:41 ==
LOC: MICIMG 14:41
PROVIDERS: PCP Family Medicine; Visit Provider Nurse Practitioner Family
DX: M47.896 Other spondylosis, lumbar region (principal)
CPT/HCPCS: 72148

== ENCOUNTER 2024-03-31 08:22 | Emergency (ER) | payer OTHER, SELFPAY ==
--- NOTE | ~2024-03-31 | XR_ITS ---
Clinical Indication: Cough PA and lateral views of the chest: Comparison: 10/19/2022 Findings: Stable calcified right apical granuloma. The lungs are otherwise clear, without evidence of focal consolidation or pleural effusion. Cardiomediastinal silhouette is within normal limits. Bone s and soft tissues are unremarkable. Impression: No acute abnormality. Reviewed, dictated and finalized at location . ENGINEER Impression: No acute abnormality.
[2024-03-31 08:26] VITALS: BP 106/55; PULSE 80; RESP 16; TEMP 36.8; O2SAT 98
--- OUTSIDE RECORDS SUMMARY | 2024-03-31 08:37 | XMS_ITS | Clinical Summary ---
Author Organization [facility] [place] [address] Address [address] [place] [address] Care Team Providers Care Knitting Machine Mechanic Name Role Phone Deondre Salazar MD Primary Care Provider [phone] Allergies Active Allergy Reactions Criticality Noted Date Comments Levofloxacin Palpitations Low 11/20/2022 Telithromycin Palpitations Low Medications ferrous sulfate 325 mg (65 mg of elemental iron) tabletIndication s:Iron Deficiency Anemia Take 1 tablet (325 mg total) by mouth daily with breakfast Active metoprolol (LOPRESSOR) 25 mg tabletIndication s:hypertension Take 0.5 tablets (12.5 mg total) by mouth 2 (two) times a day Active losartan-hydroCH LOROthiazide (HYZAAR) 100-12.5 mg per tabletIndication s:hypertension Take 1 tablet by mouth every morning Active pantoprazole DR (PROTONIX) 40 mg EC tabletIndication s:Stress Ulcer Prophylaxis Take 1 tablet (40 mg total) by mouth every morning Active PARoxetine (PAXIL) 20 mg tabletIndication s:Anxiety with Depression Take 1 tablet (20 mg total) by mouth every morning Active cholecalciferol (VITAMIN D-3) 5,000 unit capsuleIndicatio ns:Vitamin D Deficiency Take 1 capsule (5,000 Units total) by mouth every morning Active albuterol HFA (PROVENTIL HFA,VENTOLIN HFA,PROAIR HFA) 90 mcg/actuation inhaler Inhale 2 puffs every 4 (four) hours as needed for shortness of breath or wheezing 3 Active loratadine (CLARITIN) 10 mg tablet Take 1 tablet (10 mg total) by mouth daily 30 tablet 11 4 04/25/19 25 Active Additional Information Patient taking differently:10 mg oralEvery morning, Indications: Allergic Rhinitis, Informant: Self, Reported on 08/14/2023 fluticasone propionate (FLONASE) 50 mcg/actuation nasal sprayIndications :Allergic Rhinitis Administer 1 spray into each nostril daily 1 each 4 Active Additional Information Patient taking differently:1 spray each nostrilAs needed, allergies, Indications: Allergic Rhinitis, Informant: Self, Reported on 08/14/2023 risankizumab-rza a (Skyrizi) 150 mg/mL syringeIndicatio ns: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 Inject 150 mg under the skin every 3 (three) months Last dose 08/2023 Active folic acid (FOLVITE) 1 mg tabletIndication s:Folate Deficiency Take 1 tablet (1 mg total) by mouth every morning 4 Active diazePAM (VALIUM) 5 mg tablet Take 0.5 tablets (2.5 mg total) by mouth as needed for anxiety Hasn't had to use 4 Active acetaminophen (TYLENOL) 500 mg tablet Take 2 tablets (1,000 mg total) by mouth every 6 (six) hours as needed for pain Active oxyCODONE (ROXICODONE) 5 mg immediate release tabletIndication s:Pain Take 1 tablet (5 mg total) by mouth every 4 (four) hours as needed for pain 5 tablet 4 Active aspirin 81 mg enteric coated tablet TAKE 1 TABLET DAILY 90 tablet 2 4 Active atorvastatin (LIPITOR) 80 mg tablet TAKE 1 TABLET NIGHTLY 90 tablet 3 4 Active Active Problems Problem Noted Date Diagnosed Date 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 Coronary arteriosclerosis in [place] artery 03/24 Overview (06/07/2016): CRNRY ATHRSCL ITALOVE VSSL Pure hypercholesterolemia 03/24/2013 Overview (06/07/2016): PURE HYPERCHOLESTEROLEM Tobacco dependence syndrome 03/24/2013 Overview (06/08/2016): TOBACCO USE DISORDER Hypertension 03/24/2013 Overview (06/08/2016): HYPERTENSION NOS Post percutaneous transluminal coronary angiopla sty 03/24/2013 Overview (06/10/2016): STATUS-POST PTCA Surgical History Surgery Date Site/Laterality Comments HYSTERECTOMY 03/05/1993 - 03/04/1994 Hysterectomy CORONARY ANGIOPLASTY 03/05/2008 - 03/04/2009 x1 stent ROTATOR CUFF REPAIR 03/05/2006 - 03/04/2007 Left Medical History Medical History Date Comments Hx Other Medical Sleep Apnea, CP AP Gastroesophageal reflux disease GERD Hx Other Medical Anemia since pr egnancies Hx Other Medical Diverticulitis Hx Other Medical Depression, wit h Anxiety Hyperlipidemia Hypertension Sleep apnea doesn't tolerate cpap COPD (chronic obstructive pulmonary disease) (HC C) Arthritis Family History Medical History Relation Name Comments Depression Brother Other Father Alive and well; Throat cancer Father Heart attack Maternal Grandfather Myocard ial Infarction; Cause of : Myocardial Infarction Hypertension Mother Hypertension; No Known Problems Sister Relation Name Status Comments Brother Alive Father Alive Maternal Grandfather (Age 80) Mother Alive Sister Alive Social History Tobacco Use Types Packs/Day Years Used Date Smoking Tobacco: Every Day Cigarettes Smokeless Tobacco: Never Tobacco Cessation:Ready to Q uit: Not Asked; Counseling Given: Not Answered Alcohol Use Standard Drinks/Week Comments No 0 (1 standard drink = 0.6 oz pur e alcohol) AUDIT-C Answer Date Recorded Q1: How often do you have a drink containing alcohol? Never 08/14/2023 Q2: How many drinks containi ng alcohol do you have on a typical day when you are drinking? Patient does not drink Q3: How often do you have si x or more drinks on one occasion? Never 08/14/2023 Personal Safety Answer Date Recorded Have you ever been in or are you currently in a harmful physical or emotional relationship or is someone making you feel afraid or unsafe? 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 Gender Identity Not on file Sexual Orientation Not on file Obstetrics History Last Filed Vital Signs Vital Sign Reading Time Taken Comments Blood Pressure 152/76 08/22/2023 4:00 PM CDT Pulse 80 08/22/2023 4:00 PM CDT Temperature 36.7 ??C (98.1 ??F) 08/22/2023 3:25 PM CD T Respiratory Rate 20 08/22/2023 4:00 PM CDT Oxygen Saturation 95% 08/22/2023 4:00 PM CDT Inhaled Oxygen Concentration - - Weight 65.8 kg (145 lb) 08/14/2023 12:10 PM CDT Height 152.4 cm (5') 08/14/2023 12:10 PM CDT Body Mass Index 28.32 08/14/2023 12:10 PM CDT Plan of Treatment Health Maintenance Due Date Last Done Comments Breast Cancer Screening-Mammogram 1960 Colon Cancer Screening-Colonoscopy 1960 Depression Screening 1960 Hepatitis C Screening 1960 Pneumococcal vaccine <65 (1 of 2 - PCV) 1966 Hepatitis B Screening 1978 Regular Well Visit/Exam 18-64 1978 Zoster Vaccine (1 of 2) 2010 Influenza Vaccine (#1) 2023 03/23/2016 DTaP/Tdap/Td Vaccine (2 - Td or Tdap) 03/23/2026 Insurance [facility] PLUS [facility]PP[facility] Address: [facility] [address] [place] [address] [facility] [place] [address] [facility] Address: [place] [address] Care Teams Knitting Machine Mechanic Relationship Specialty Start Date End Date Deondre Salazar MD [address] [address] PCP - General 10/15/13
--- OUTSIDE RECORDS SUMMARY | 2024-03-31 08:37 | XMS_ITS | Encounter Summary ---
Author Organization [facility] Address [address] [place] [address] Care Team Providers Care Claim Professional Name Role Phone Deondre Salazar MD Primary Care Provider [phone] Encounter Details Date Type Department Care Team (Late st Contact Info) Description 06/13/2018 Lab Requisition [facility] Care Derm[facility] Lab [address] [facility] [address] [facility] [place] [id number] Alma Hernadez DO [address] [facility] [address] [place] [address] Social History Tobacco Use Types Packs/Day Years Used Date Smoking Tobacco: Never Assessed Sex and Gender Information Value Date Recorded Sex Assigned at Not on file Gender Identity Not on file Sexual Orientation Not on file documented as of this encounter Plan of Treatment Not on file documented as of this encounter Procedures Procedure Name Priority Date/Time Associated Diagnosis Comments DERMATOPATHOLOGY Routine 06/12/2018 12:0 0 AM CDT documented in this encounter Results * DERMATOPATHOLOGY (06/12/2018 12:00 AM CDT) Case Report Dermatopathology Report ? Case: [id number] ? Authorizing Provider: ??Alma Hernadez DO ?? Collected: ? 06/12/2018 12:00 AM ? Pathologist: ? Juana Singh MD ? Received: ?06/13/2018 12:30 PM ? Specimen: ?Skin, left leg ? 3:03 PM T DERMATOPATHOLOGY LABORATORY Final Diagnosis Specimen A. 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 3:03 PM T DERMATOPATHOLOGY LABORATORY Gross Description Specimen A: Received is one formalin filled container labeled with the patient's name and designated left leg. The specimen consists of a shave measuring [id number]. Jar 0. 3:03 PM T DERMATOPATHOLOGY LABORATORY Microscopic Description Specimen A. SKIN, left leg: There is psoriasiform hyperplasia of the epidermis with focal parakeratosis with neutrophils and spongiosis. There is a superficial, mainly lymphohistiocytic inflammatory infiltrate. Grocott's methenamine silver (GMS) stain fails to highlight fungal elements in the available sections. COMMENT: The histological differential diagnosis includes early / partially treated / guttate psoriasis, which is favored, and a chronic eczematous dermatitis. Clinicopathologic correlation is recommended. 3:03 PM [facility] DERMATOPATHOLOGY LABORATORY Disclaimer An external and internal positive and negative controls are appropriate for the histochemical, immunohistochemical and immunofluorescence stain(s) in this case (if any), except where stated explicitly. The performance characteristics of the stain(s) cited in this report were developed and its performance characteristic determined by the Dermatopathology Laboratory at [facility], directed by Dr. Wily Bliss. These tests need not be, and therefore are not, approved by the [place] Food and Drug Administration. The tests are used for clinical purposes. Billing Codes Specimen Charges Stain Charges 21075 1 67511 1 9 3:03 PM CDT DERMATOPATHOLOGY LABORATORY Embedded Images 9 3:03 PM CDT DERMATOPATHOLOGY LABORATORY Pathology/Cytolog y TISSUE SPECIMEN FROM SKIN / Unknown 06/12/2018 06/13/2018 12:30 PM CDT Alma Hernadez DO LAB - PATHOLOGY/C YTOLOGY ORDERABLES DERMATOPATHOLOGY LABORATORY [facility] - Department of Dermatology [address] [place] [address], 5th Floor Lab [address] [phone] documented in this encounter Visit Diagnoses Not on filedocumented in this encounter Care Teams Claim Professional Relationship Specialty Start Date End Date Deondre Salazar MD PCP - General Family Medicine 03/23/16 documented as of this encounter
--- OUTSIDE RECORDS SUMMARY | 2024-03-31 08:37 | XMS_ITS | Referral Summary ---
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 Coronary arteriosclerosis in [place] artery 03/24 Overview (06/07/2016): CRNRY ATHRSCL ITALOVE VSSL Pure hypercholesterolemia 03/24/2013 Overview (06/07/2016): PURE HYPERCHOLESTEROLEM Tobacco dependence syndrome 03/24/2013 Overview (06/08/2016): TOBACCO USE DISORDER Hypertension 03/24/2013 Overview (06/08/2016): HYPERTENSION NOS Post percutaneous transluminal coronary angiopla sty 03/24/2013 Overview (06/10/2016): STATUS-POST PTCA Social History Tobacco Use Types Packs/Day Years [...] on file 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
--- OUTSIDE RECORDS SUMMARY | 2024-03-31 08:38 | XMS_ITS | Clinical Summary ---
Author Organization [facility] [employer] Address [address] [place] [address] Care Team Providers Care Av Specialist Name Role Phone Deondre Salazar MD Primary Care Provider [phone] Source Comments [facility],non-owned Affiliates and Associated Physician Practices is amultiple site organization consisting of ambulatory clinics and hospital sitesin [place], [place], [place] and [place]. This disclosure is being madepursuant to the Care Everywhere program and may not contain all information available regarding this patient. Last updated 17.[facility] Immunizations Name Administration Dates Next Due INFLUENZA VACCINE, QUADR. (F LUZONE; FLULAVAL; FLUARIX; AFLURIA QUADRIVALENT; 6MO+), 0.5 ML (IIV4) 03/23/2016 TDAP (7yrs+) 03/23/2016 Social History Tobacco Use Types Packs/Day Years Used Date Smoking Tobacco: Never Assessed Sex and Gender Information Value Date Recorded Sex Assigned at Not on file Gender Identity Not on file Sexual Orientation Not on file Plan of Treatment Health Maintenance Due Date Last Done Comments COLOGUARD (AGES 45-75) - COL ON CA SCREENING 1960 COLON MONITORING 1960 COLONOSCOPY - COLON CA SCREENING 1960 CT COLONOGRAPHY - COLON CA SCREENING 1960 Colorectal Cancer Screening 1960 FIT - COLON CA SCREENING 1960 FLEX SIG - COLON CA SCREENING 1960 LIPID TESTING 1960 MAMMOGRAM 1960 PAP SMEAR 1960 HIV SCREENING 1975 HEPATITIS C SCREENING 02/27/1978 PNEUMOCOCCAL VACCINE 50+ (1 of 1 - PCV) 2010 ZOSTER VACCINE (1 of 2) 2010 COVID-19 VACCINE (2023-2 5 season) 2023 INFLUENZA VACCINE (#1) 2023 03/23/2016 DEPRESSION SCREENING 03/05/2024 DTAP/TDAP/TD VACCINES (2 - T d or Tdap) 03/23/2026 03/23/2016 Respiratory Syncytial Virus (RSV) Vaccine Pt: or over 60 yrs (1 - 1-dose 75+ series) 2035 HEPATITIS B VACCINE Aged Out No longe r eligible based on patient's age to complete this topic HIB VACCINE Aged Out No longer eligi ble based on patient's age to complete this topic HPV VACCINE Aged Out No longer eligi ble based on patient's age to complete this topic MENINGOCOCCAL (Group B) VACCINE Aged Out No longer eligible based on patient's age to complete this topic MENINGOCOCCAL VACCINE Aged Out No otto memo eligible based on patient's age to complete this topic PNEUMOCOCCAL VACCINE Aged Out No long er eligible based on patient's age to complete this topic Care Teams Av Specialist Relationship Specialty Start Date End Date Deondre Salazar MD PCP - General Family Medicine 03/23/16
--- OUTSIDE RECORDS SUMMARY | 2024-03-31 08:38 | XMS_ITS | Patient Health Summary ---
Author Organization [facility] Address [address] [address] Care Team Providers Care Light Rail Signal Technician Name Role Phone Deondre Salazar MD Primary Care Provider [phone] Note from [facility],non-owned Affiliates and Associated Physician Practices is amultiple site organization consisting of ambulatory clinics and hospital sitesin [place], [place], [place]. This disclosure is being madepursuant to the Care Everywhere program and may not contain all information available regarding this patient. Last updated 17.[facility] Immunizations * INFLUENZA VACCINE, QUADR. (FLUZONE; FLULAVAL; FLUARIX; AFLURIA QUADRIVALENT; 6MO+), 0.5 ML (IIV4)(Given 03/23/2016) * TDAP (7yrs+)(Given 03/23/2016) Social History Tobacco Use Types Packs/Day Years Used Date Smoking Tobacco: Never Assessed Sex and Gender Information Value Date Recorded Sex Assigned at Not on file Gender Identity Not on file Sexual Orientation Not on file Procedures * DERMATOPATHOLOGY(Performed 06/12/2018) Results * DERMATOPATHOLOGY (06/12/2018 12:00 AM CDT) Case Report Dermatopathology Report ? Case: [id number] ? Authorizing Provider: ??Alma Hernadez, DO ?? Collected: ? 06/12/2018 12:00 AM ? Pathologist: ? Juana Singh MD ? Received: ?06/13/2018 12:30 PM ? Specimen: ?Skin, left leg ? 3:03 PM CDT DERMATOPATHOLOGY LABORATORY Final Diagnosis Specimen A. 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 3:03 PM CDT DERMATOPATHOLOGY LABORATORY Gross Description Specimen A: Received is one formalin filled container labeled with the patient's name and designated left leg. The specimen consists of a shave measuring [id number]. Jar 0. 3:03 PM CDT DERMATOPATHOLOGY LABORATORY Microscopic Description Specimen A. SKIN, [...] dermatitis. Clinicopathologic correlation is recommended. 3:03 PM T DERMATOPATHOLOGY LABORATORY Disclaimer An external and internal positive and negative controls are appropriate for the histochemical, immunohistochemical and immunofluorescence stain(s) in this case (if any), except where stated explicitly. The performance characteristics of the stain(s) cited in this report were developed and its performance characteristic determined by the Dermatopathology Laboratory at [facility], directed by Dr. Wily Bliss. These tests need not be, and therefore are not, approved by the [place] Food and Drug Administration. The tests are used for clinical purposes. Billing Codes Specimen Charges Stain Charges 99624 1 [id number] 1 9 3:03 PM CDT DERMATOPATHOLOGY LABORATORY Embedded Images 9 3:03 PM CDT DERMATOPATHOLOGY LABORATORY Pathology/Cytolog y TISSUE SPECIMEN FROM SKIN / Unknown 06/12/2018 06/13/2018 12:30 PM CDT Alma Hernadez DO LAB - PATHOLOGY/C YTOLOGY ORDERABLES DERMATOPATHOLOGY LABORATORY [facility] - Department of Dermatology [address] [place] [address] [address] [phone] Care Teams Light Rail Signal Technician Relationship Specialty Start Date End Date Deondre Salazar MD PCP - General Family Medicine 03/23/16
--- OUTSIDE RECORDS SUMMARY | 2024-03-31 08:38 | XMS_ITS | Clinical Summary ---
Author Organization [facility] Address [facility] [facility] [place] [address] [place] [address] Care Team Providers Care Wheel Cutter Name Role Phone Deondre Salazar MD Primary Care Provider [phone] Allergies Active Allergy Reactions Criticality Noted Date Comments Levofloxacin Palpitations Low 11/20/2022 Medications potassium chloride CR (KLOR-CON M20) 20 MEQ tablet Take 1 tablet (20 mEq total) by mouth daily. 5 tablet 3 Active guaiFENesin ER (MUCINEX) 600 MG 12 hr tablet Take 1 tablet (600 mg total) by mouth 2 (two) times daily. 14 tablet 3 Active albuterol sulfate HFA 108 (90 Base) MCG/ACT inhaler Inhale 2 puffs into the lungs every 6 (six) hours as needed for Shortness of breath. 6.7 g 3 Active benzonatate (TESSALON) 200 MG capsule TAKE [address]OUTE 3 TIMES PER DAY NEEDED FOR COUGH Active SYMBICORT 80-4.5 MCG/ACT inhaler INHALE 2 PUFFS EVERY 12 HOURS 3 Active famotidine (PEPCID) 20 MG tablet Take 1 tablet (20 mg total) by mouth 2 (two) times daily. 20 tablet 4 Active diazePAM (VALIUM) 5 MG tabletIndicatio ns:Back pain Take 0.5 tablets (2.5 mg total) by mouth every 12 (twelve) hours. 10 tablet 4 Active Family History Medical History Relation Comments Cancer Father Stroke Father Hypertension Maternal Grandfather Hyperlipidemia Maternal Grandmother Hyperlipidemia Mother Kidney Disease Mother Hypertension Sister Relation Status Comments Father Maternal Grandfather Maternal Grandmother Mother Sister Social History Tobacco Use Types Packs/Day Years Used Date Smoking Tobacco: Every Day Cigarettes Smokeless Tobacco: Never Tobacco Cessation:Ready to Q uit: Not Asked; Counseling Given: Not Answered Alcohol Use Standard Drinks/Week Comments Never 0 (1 standard drink = 0.6 oz pur e alcohol) Comments No Sex and Gender Information Value Date Recorded Sex Assigned at Not on file 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 Gender Identity Not on file Sexual Orientation Not on file Last Filed Vital Signs Vital Sign Reading Time Taken Comments Blood Pressure 133/55 06/25/2023 7:49 PM CDT Pulse 57 06/25/2023 7:49 PM CDT Temperature 37 ??C (98.6 ??F) 06/25/2023 4:24 PM CDT Respiratory Rate 17 06/25/2023 7:49 PM CDT Oxygen Saturation 97% 06/25/2023 7:49 PM CDT Inhaled Oxygen Concentration - - Weight 65.8 kg (145 lb) 06/25/2023 4:24 PM CDT Height 152.4 cm (5') 06/25/2023 4:24 PM CDT Body Mass Index 28.32 06/25/2023 4:24 PM CDT Plan of Treatment Health Maintenance Due Date Last Done Comments Colorectal Cancer Screening Colonoscopy (10 Years) 1960 Annual Physical 1963 Pneumococcal Vaccine: Pediatrics (0 to 5 Years) and At-Risk Patients (6 to 64 Years) (1 of 2 - PCV) 1966 Hepatitis C 1978 Mammogram Screening 2000 Zoster Vaccines (1 of 2) 2010 COVID-19 Vaccine ( - 2023-2 5 season) 2023 01/30/2021, 05/15/2020, 04/17/2020 Influenza Adult (#1) 2023 03/23/2016 DTaP, Tdap and Td Vaccines ( 2 - Td or Tdap) 03/23/2026 03/23/2016 RSV Immunization or 60+ Years (1 - 1-dose 75+ series) 2035 Meningococcal B Vaccine Aged Out No l onger eligible based on patient's age to complete this topic Meningococcal Vaccine Aged Out No otto memo eligible based on patient's age to complete this topic RSV Immunizations Under 20 Months Aged Out No longer eligible b ased on patient's age to complete this topic Insurance [facility] Care Teams Wheel Cutter Relationship Specialty Start Date End Date Deondre Salazar MD [address] [place] [address] [address] [place] [address] PCP - General FAMILY PRACTICE 11/20/22
--- OUTSIDE RECORDS SUMMARY | 2024-03-31 08:38 | XMS_ITS | Referral Summary ---
Author Organization [facility] Address [address] [facility] [place] [address] Care Team Providers Care Appraisal Coordinator Name Role Phone Deondre Salazar MD Primary Care Provider [phone] Source Comments [facility],non-owned Affiliates and Associated Physician Practices is amultiple site organization consisting of ambulatory clinics and hospital sitesin [place], [place], [place] and [place]. This disclosure is being madepursuant to the Care Everywhere program and may not contain all information available regarding this patient. Last updated 17.[facility] Immunizations Name Administration Dates Next Due INFLUENZA VACCINE, QUADR. (F LUZONE; FLULAVAL; FLUARIX; AFLURIA QUADRIVALENT; 6MO+), 0.5 ML (IIV4) 03/23/2016 TDAP (7yrs+) 03/23/2016 Social History Tobacco Use Types Packs/Day Years Used Date Smoking Tobacco: Never Assessed Sex and Gender Information Value Date Recorded Sex Assigned at Not on file Gender Identity Not on file Sexual Orientation Not on file Plan of Treatment Not on file Care Teams Appraisal Coordinator Relationship Specialty Start Date End Date Deondre Salazar MD PCP - General Family Medicine 03/23/16
[2024-03-31 09:21] LABS: Influenza A QL RT-PCR Positive (Negative); Influenza B QL RT-PCR Negative (Negative); RSV RNA, RT-PCR Negative (Negative); SARS-CoV-2 RNA PCR Negative (Negative)
--- OUTSIDE RECORDS SUMMARY | 2024-03-31 09:23 | XMS_ITS | Patient Health Summary ---
Author Organization [facility] Address [address] [place] [address] Care Team Providers Care Design Checker Name Role Phone Deondre Salazar MD Primary Care Provider [phone] [facility],non-owned Affiliates and Associated Physician Practices is amultiple site organization consisting of ambulatory clinics and hospital sitesin [place], [place], [place] and [place]. This disclosure is being madepursuant to the Care Everywhere program and may not contain all information available regarding this patient. Last updated 17.[facility] Immunizations * INFLUENZA VACCINE, QUADR. (FLUZONE; FLULAVAL; [...] CDT) Case Report Dermatopathology Report ? Case: [id number] ? Authorizing Provider: ??Alma Hernadez, DO ?? [...] The specimen consists of a shave measuring [id number]. Jar 0. 3:03 PM CDT DERMATOPATHOLOGY LABORATORY [...] characteristic determined by the Dermatopathology Laboratory at [facility], directed by Dr. Wily Bliss. These tests need not be, and therefore are not, approved by the [place] Food and Drug Administration. The tests are used for clinical purposes. Billing Codes Specimen Charges Stain Charges 54465 1 75846 1 9 3:03 PM CDT DERMATOPATHOLOGY LABORATORY Embedded Images 9 3:03 PM CDT DERMATOPATHOLOGY LABORATORY Pathology/Cytolog y TISSUE SPECIMEN FROM SKIN / Unknown 06/12/2018 06/13/2018 12:30 PM CDT Alma Hernadez DO LAB - PATHOLOGY/C YTOLOGY ORDERABLES DERMATOPATHOLOGY LABORATORY [facility] - Department of Dermatology [address] [place] [address] [address] [phone] Care Teams Design Checker Relationship Specialty Start Date End Date Deondre Salazar MD PCP - General Family Medicine 03/23/16
--- OUTSIDE RECORDS SUMMARY | 2024-03-31 09:23 | XMS_ITS | Referral Summary ---
Author Organization [facility] Address [address] [facility] [place] [address] Care Team Providers Care Medical Scientific Liaison Name Role Phone Deondre Salazar MD Primary Care Provider [phone] Source Comments [facility],non-owned Affiliates and Associated Physician Practices is amultiple site organization consisting of ambulatory clinics and hospital sitesin [place], [place], [place] and [place]. This disclosure is being madepursuant to the Care Everywhere program and may not contain all information available regarding this patient. Last updated 17.[facility] Immunizations Name Administration Dates Next Due [...] of Treatment Not on file Care Teams Medical Scientific Liaison Relationship Specialty Start Date End Date Deondre Salazar MD PCP - General Family Medicine 03/23/16
--- OUTSIDE RECORDS SUMMARY | 2024-03-31 09:23 | XMS_ITS | Referral Summary ---
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
--- OUTSIDE RECORDS SUMMARY | 2024-03-31 09:23 | XMS_ITS | Clinical Summary ---
Author Organization [facility] Address [address] [place] [address] Care Team Providers Care Production Control Planner Name Role Phone Deondre Salazar MD Primary Care Provider [phone] Source Comments [facility],non-owned Affiliates and Associated Physician Practices is amultiple site organization consisting of ambulatory clinics and hospital sitesin [place], [place], [place] and [place]. This disclosure is being madepursuant to the Care Everywhere program and may not contain all information available regarding this patient. Last updated 17.[facility] Immunizations Name Administration Dates Next Due [...] age to complete this topic Care Teams Production Control Planner Relationship Specialty Start Date End Date Deondre Salazar MD PCP - General Family Medicine 03/23/16
--- OUTSIDE RECORDS SUMMARY | 2024-03-31 09:23 | XMS_ITS | Clinical Summary ---
Author Organization [facility] Address [facility] 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
--- OUTSIDE RECORDS SUMMARY | 2024-03-31 09:23 | XMS_ITS | Clinical Summary ---
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 Gender Identity Not on file Sexual Orientation [...] (2 - Td or Tdap) 03/23/2026 Insurance [facility] CHO[facility] PLUS [facility] HMO/PPO Address[facility] [address] [place] [address] [facility] CHOICE PLUS [facility] HMO/[place] [address] [facility] CHOICE PLUS [facility] HMO/PPO Address: [place] [address] Care Teams Director News Relationship Specialty Start Date End Date Deondre Salazar MD [address] [address] PCP - General 10/15/13
--- OUTSIDE RECORDS SUMMARY | 2024-03-31 09:23 | XMS_ITS | Encounter Summary ---
Author Organization [facility] Address [address] [place] [address] Care Team Providers Care Standards Engineer Name Role Phone Deondre Salazar MD Primary Care Provider [phone] Encounter Details Date Type Department Care Team (Late st Contact Info) Description 06/13/2018 Lab Requisition [facility] [address] [facility] [place] [id number] Alma Hernadez DO [address] [facility] [address] [place] [address] Social History Tobacco Use Types Packs/Day Years [...] CDT) Case Report Dermatopathology Report ? Case: [id number] ? Authorizing Provider: ??Alma Hernadez DO ?? Collected: ? 06/12/2018 12:00 AM ? Pathologist: ? Juana Singh MD ? Received: ?06/13/2018 12:30 PM ? Specimen: ?Skin, left leg ? 3:03 PM T DERMATOPATHOLOGY LABORATORY Final Diagnosis Specimen A. SKIN, left leg: PSORIASIFORM DERMATITIS (L44.8) (see microscopic description and comment) 3:03 PM [facility] DERMATOPATHOLOGY LABORATORY Clinical History PSO, ACD, favor vs drug. 3:03 PM T DERMATOPATHOLOGY LABORATORY Gross Description Specimen A: Received is one formalin filled container labeled with the patient's name and designated left leg. The specimen consists of a shave measuring [id number]. Jar 0. 3:03 PM T DERMATOPATHOLOGY LABORATORY [...] dermatitis. Clinicopathologic correlation is recommended. 3:03 PM [facility] DERMATOPATHOLOGY LABORATORY Disclaimer An external and internal positive and negative controls are appropriate for the histochemical, immunohistochemical and immunofluorescence stain(s) in this case (if any), except where stated explicitly. The performance characteristics of the stain(s) cited in this report were developed and its performance characteristic determined by the Dermatopathology Laboratory at [facility], directed by Dr. Wily Bliss. These tests need not be, and therefore are not, approved by the [place] Food and Drug Administration. The tests are used for clinical purposes. Billing Codes Specimen Charges Stain Charges 04098 1 [id number] 1 9 3:03 PM CDT DERMATOPATHOLOGY LABORATORY Embedded Images 9 3:03 PM CDT DERMATOPATHOLOGY LABORATORY Pathology/Cytolog y TISSUE SPECIMEN FROM SKIN / Unknown 06/12/2018 06/13/2018 12:30 PM CDT Alma Hernadez DO LAB - PATHOLOGY/C YTOLOGY ORDERABLES DERMATOPATHOLOGY LABORATORY [facility] - Department of Dermatology [address] [place] [address], 5th Floor Lab [address] [phone] documented in this encounter Visit Diagnoses Not on filedocumented in this encounter Care Teams Standards Engineer Relationship Specialty Start Date End Date Deondre Salazar MD PCP - General Family Medicine 03/23/16 documented as of this encounter
[2024-03-31 09:29] LABS: Basophils Absolute Auto 0.1 K/mm3 (0.0-0.1); Basophils Percent Auto 0.7 % (0.2-1.2); Eosinophils Absolute Auto 0.1 K/mm3 (0-0.3); Eosinophils Percent Auto 0.9 % (0-4.4); Hematocrit 44.9 % (37.0-47.0); Hemoglobin 14.9 g/dL (12.0-15.0); Immature Granulocyte Absolute 0.04 K/mm3 (0.00-0.031); Immature Granulocyte Percent A 0.5 % (0-0.5); Lymphocytes Absolute Auto 0.73 K/mm3 (0.9-3.2); Lymphocytes Percent Auto 8.2 % (18.3-44.2); Mean Corpuscular HGB Conc 33.2 g/dl (32-36); Mean Corpuscular Hemoglobin 30.7 pg (26-34); Mean Corpuscular Volume 92.4 fl (80-100); Mean Platelet Volume 12.3 fl (7.4-10.4); Monocytes Absolute Auto 1.1 K/mm3 (0.1-0.6); Monocytes Percent Auto 12.4 % (2.6-8.5); Neutrophils Absolute Auto 6.9 K/mm3 (1.3-6.7); Neutrophils Percent Auto 77.3 % (45.5-73.1); Platelet Count Result 146 k/mm3 (150-375); Red Blood Count 4.86 M/mm3 (4.2-5.4); Red Cell Distribution Width 12.8 % (11.5-14.5); White Blood Count 8.9 K/mm3 (4.5-10.0)
[2024-03-31 09:40] LABS: Alanine Aminotransferase 16 U/L (6-35); Albumin Level 3.9 g/dL (3.5-5.1); Alkaline Phosphatase 93 U/L (38-126); Anion Gap 10 mmol/L (4-12); Aspartate Amino Transferase 19 U/L (14-36); Bilirubin,Total 0.8 mg/dL (0.2-1.3); Blood Urea Nitrogen 13 mg/dL (7-17); Calcium 8.9 mg/dL (8.4-10.2); Carbon Dioxide 27 mmol/L (22-30); Chloride 97 mmol/L (98-107); Estimated CRCL calculation 45 ml/min; Estimated Glomerular Filt Rate > 60; Glucose 109 mg/dL (65-110); Potassium 3.5 mmol/L (3.4-5.0); Sodium 134 mmol/L (137-145)
--- NOTE | 2024-03-31 10:19 | ED.GENADULT ---
HPI - General Adult General Chief complaint: Upper Respiratory Infection Stated complaint: headache, weak, poor appetite, chills since Sat Time Seen by Provider: 03/31/24 08:37 History of Present Illness HPI narrative: Patient is a 64-year-old female who presents ER with concerns for influenza infection. Recently exposed to a co-worker with influenza. Over last 3 days she has been having body aches mild headache and cough. She endorses fever. No chest pain or abdominal pain. No syncope. She did not receive a flu shot. Related Data Home Medications ?Medication ?Instructions ?Recorded ?Confirmed ?Last Taken ?Type cholecalciferol (vitamin D3) 125 5,000 unit PO DAILY 08/30/20 02/14/24 Unknown History mcg (5,000 unit) capsule risankizumab-rzaa 75 mg/0.83 mL 150 mg subcut . Q three-month 08/30/20 02/14/24 Unknown History subcutaneous syringe (Skyrizi) aspirin 81 mg tablet,delayed 81 mg PO DAILY 12/21/21 02/14/24 Unknown History release atorvastatin 40 mg tablet 80 mg PO DAILY 12/21/21 02/14/24 Unknown History Allergies Allergy/AdvReac Type Severity Reaction Status Date / Time levofloxacin Allergy Mild unknown Verified 02/14/24 14:51 clarithromycin Allergy Unknown unknown Verified 02/14/24 14:51 telithromycin Allergy Unknown unknown Verified 02/14/24 14:51 MICROFLEXIN Allergy Unknown unknown Uncoded 02/14/24 14:51 Review of Systems Review of Systems: All systems reviewed & are unremarkable except as noted in HPI and below Constitutional: Constitutional: Reports fatigue and Reports fever(s) ENT: Reports system reviewed and no additional complaints, except as documented Cardiovascular: Cardiovascular: Reports no additional cardiovascular complaints Respiratory: Respiratory: Reports cough, Denies dyspnea and Denies wheezing Gastrointestinal: Gastrointestinal: Reports no additional gastrointestinal complaints PMFSH Past Medical History Medical History (Reviewed 02/14/24 @ 14:53 by Laurie Arevalo [facility] [address]) Chronic right-sided low back pain with sciatica MRI of the lumbar spine on 10/11/2023 revealed diffuse [id number] spondylosis. Emphysema lung mild emphysema on screening CT lung scan on 10/18/2021. Folate deficiency Folic acid level low at 2.5 With hemoglobin 16.4 on 11/28/2022. Anemia hemoglobin 16.4 on 11/28/2022. Cough chest x-ray in ER 02/17/[address] of the chest 03/12/2023 reportedly normal. ENT evaluation 03/21/2023 with laryngoscopy unremarkable except for edema of the vocal folds. Fatigue COVID-19 approx 2.5 weeks ago Hypokalemia (11/20/22) potassium low at 2.7 in the ER with magnesium 2.2 on 11/20/2022. Potassium 4.2 on 11/28/2022. Chronic pain of left knee MRI of the left knee on 11/09/2022 with degenerative changes with chondromalacia of patella with normal meniscus. Acute bronchitis BMI 26.0-26.9,adult Overweight (BMI 25.0-29.9) Personal history of nicotine dependence Colon cancer screening Cologuard screening on 02/01/2022 was. Recheck in 3 years. Screening for lung cancer Vitamin D deficiency Level low at 23.4 with goal greater than 30 on 11/28/2022. Snoring CHING (obstructive sleep apnea) B12 deficiency Normal at 478 with hemoglobin 16.4 on 11/28/2022. Acute right-sided low back pain with sciatica X-ray of the lumbar spine on 06/09/2021 with diffuse osteopenia, mild scoliosis, significant degenerative disc disease at L5-S1 with moderate degenerative changes throughout. Acute right hip pain X-ray of the right hip on 06/09/2021 reveals mild osteoarthritis with severe lumbar spondylosis noted. Strain of right calf muscle BMI 31.0-31.9,adult Acute pain of right lower extremity BMI 30.0-30.9,adult Acute sinusitis, unspecified Hyperlipidemia Hypertension BMI 29.0-29.9,adult Biliary colic History of vaginal delivery x 2 Viral gastroenteritis Surgical History Surgical History History of myomectomy History of angioplasty History of hysterectomy Family History Family History Mother Hypertension Patient's mother is in good health Grandparent Acute myocardial infarction Family history of malignant melanoma Family history of lung cancer Family history of primary malignant neoplasm of liver Family history of malignant neoplasm of breast Father Family history of throat cancer Lung cancer Sibling Depression Social History Social History (Reviewed 02/14/24 @ 14:53 by Laurie Arevaol [facility] [facility]) Smoking packs per day: 1 Smoking cigarettes per day: 20.0 Years smoked: 1 Smoking pack-years: 1.00 Smoking status: Current every day smoker Tobacco type: cigarettes Second hand tobacco smoke exposure: Yes Alcohol intake: never Substance use: never Substance use type: does not use Lack of Transportation: No Lack of Food: Never True Current Housing: I Have Housing Concerned About Future Housing: No Difficulty Paying Gas/Electric Bills: No Difficulty Paying for Meds: No Currently Unemployed: No Education: High School Diploma/GED Difficulty w/ Childcare or Family Care: No Living arrangements: with family Occupation/Education: occupation 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 HEAD: Normocephalic, atraumatic. CHEST: Clear to auscultation. No respiratory distress. HEART: Regular rate and rhythm. Normal peripheral pulses. ABDOMEN: Soft, nontender, nondistended. EXTREMITIES: Normal range of motion. No edema. SKIN: Warm, dry, no rash. NEURO: Alert and oriented x3. PSYCH: Normal mood and affect. Course Course Emergency Course: Patient resting comfortably. Informed of results. Within the window to receive Tamiflu and patient would like the prescription. Vital Signs Vital signs: Vital Signs Temperature 98.2 F 03/31/24 08:26 Pulse Rate 80 03/31/24 08:26 Respiratory Rate 16 03/31/24 08:26 Blood Pressure 106/55 L 03/31/24 08:26 Pulse Oximetry 98 03/31/24 08:26 Oxygen Delivery Room Air 03/31/24 08:26 Temperature 98.2 F 03/31/24 08:26 Pulse Rate 80 03/31/24 08:26 Respiratory Rate 16 03/31/24 08:26 Blood Pressure 106/55 L 03/31/24 08:26 Pulse Oximetry 98 03/31/24 08:26 Oxygen Delivery Room Air 03/31/24 08:43 Medical Decision Making Vital Signs Vital Signs: Vital Signs Temperature 98.2 F 03/31/24 08:26 Pulse Rate 80 03/31/24 08:26 Respiratory Rate 16 03/31/24 08:26 Blood Pressure 106/55 L 03/31/24 08:26 Pulse Oximetry 98 03/31/24 08:26 Oxygen Delivery Room Air 03/31/24 08:26 Temperature 98.2 F 03/31/24 08:26 Pulse Rate 80 03/31/24 08:26 Respiratory Rate 16 03/31/24 08:26 Blood Pressure 106/55 L 03/31/24 08:26 Pulse Oximetry 98 03/31/24 08:26 Oxygen Delivery Room Air 03/31/24 08:43 Lab Data 03/31/24 09:23 03/31/24 09:23 Labs: Lab Results 03/31/24 03/31/24 Range/Units 08:41 09:23 WBC 8.9 (4.5-10.0) K/mm3 RBC 4.86 (4.2-5.4) M/mm3 Hgb 14.9 (12.0-15.0) g/dL Hct 44.9 (37.0-47.0) % MCV 92.4 (80-100) fl MCH 30.7 (26-34) pg MCHC 33.2 (32-36) g/dl RDW 12.8 (11.5-14.5) % Plt Count 146 L (150-375) k/mm3 MPV 12.3 H (7.4-10.4) fl Immature Gran % (Auto) 0.5 (0-0.5) % Neut % (Auto) 77.3 H (45.5-73.1) % Lymph % (Auto) 8.2 L (18.3-44.2) % [place] % (Auto) 12.4 H (2.6-8.5) % Eos % (Auto) 0.9 (0-4.4) % Baso % (Auto) 0.7 (0.2-1.2) % Lymph # (Auto) 0.73 L (0.9-3.2) K/mm3 [place] # (Auto) 1.1 H (0.1-0.6) K/mm3 Eos # (Auto) 0.1 (0-0.3) K/mm3 Baso # (Auto) 0.1 (0.0-0.1) K/mm3 Abs Immat Gran (auto) 0.04 H (0.00-0.031) K/mm3 Absolute Neuts (auto) 6.9 H (1.3-6.7) K/mm3 Absolute Nucleated RBC 0.000 (0.0-0.012) K/mm3 Nucleated RBC % 0.0 (0.0-0.2) % Sodium 134 L (137-145) mmol/L Potassium 3.5 (3.4-5.0) mmol/L Chloride 97 L (98-107) mmol/L Carbon Dioxide 27 (22-30) mmol/L Anion Gap 10 (4-12) mmol/L BUN 13 (7-17) mg/dL Creatinine 0.92 (0.7-1.0) mg/dL Estim Creat Clear Calc 45 ml/min Estimated GFR > 60 (59 - ) Glucose 109 (65-110) mg/dL Calcium 8.9 (8.4-10.2) mg/dL Total Bilirubin 0.8 (0.2-1.3) mg/dL AST 19 (14-36) U/L ALT 16 (6-35) U/L Alkaline Phosphatase 93 (38-126) U/L Total Protein 7.0 (6.3-8.2) g/dL Albumin 3.9 (3.5-5.1) g/dL Influenza A (RT-PCR) Positive A (Negative) Influenza B (RT-PCR) Negative (Negative) RSV (RT-PCR) Negative (Negative) SARS-CoV-2 RNA (RT-PCR) Negative (Negative) Imaging Data Radiologist's impression: ITS Impressions Chest X-Ray 03/31/24 10:06 Impression: No acute abnormality. Discharge Plan Discharge Clinical Impression: Influenza A Patient Disposition: Home, Self-Care Condition: Stable Instructions: Influenza (ED) Additional Instructions: As discussed you have a viral illness. Unfortunately there are no specific medications we can give you to make the illness end faster. Antibiotics do not work for viral illnesses. However, you can take Acetaminophen or Ibuprofen to help with fevers and pain. Tamiflu will be prescribed and may shorten the dureation of illness by 1-2 days. Stay well hydrated and rested. Return to the emergency department if your fevers and chills continue to worse after 5 days, if you develop worsening cough with thick sputum, or are unable to stay hydrated. Contact your primary care provider in the next few days for a re-evaluation and to make sure your symptoms are improving. Patient Language: Latvian Prescriptions: New oseltamivir 75 mg capsule 75 mg PO BID Qty: 10 0RF No Action aspirin 81 mg tablet,delayed release (DR/EC) 81 mg PO DAILY atorvastatin 40 mg tablet 80 mg PO DAILY Skyrizi 75 mg/0.83 mL syringe 150 mg subcut . Q three-month cholecalciferol (vitamin D3) 125 mcg (5,000 unit) capsule 5,000 unit PO DAILY albuterol sulfate [Ventolin HFA] 90 mcg/actuation HFA aerosol inhaler 2 inh inhalation Q4H PRN (Reason: shortness of breath or wheezing) Qty: 8.5 3RF metoprolol tartrate 25 mg tablet 12.5 mg PO BID Qty: 90 3RF folic acid 1 mg tablet 1 mg PO DAILY Qty: 90 3RF losartan-hydrochlorothiazide 100-12.5 mg tablet 1 tablet PO DAILY Qty: 90 3RF pantoprazole 40 mg tablet,delayed release (DR/EC) 40 mg PO QAM Qty: 90 3RF paroxetine HCl 20 mg tablet 20 mg PO DAILY Qty: 90 3RF ferrous sulfate [Feosol] 325 mg (65 mg iron) tablet 325 mg PO DAILY Qty: 90 3RF Follow-up/Referrals: UNKNOWN,DOCTOR [Primary Care Provider] - 1 Week
[2024-03-31 10:30] VITALS: BP 100/58; PULSE 74; RESP 20; TEMP 36.7; O2SAT 94
== END 2024-03-31 10:30 | disposition home or self-care (01) ==
PROVIDERS: Emergency Provider Emergency Medicine
DX: J10.1 Influenza due to other identified influenza virus with other respiratory manifestations (principal); J43.9 Emphysema, unspecified; I10 Essential (primary) hypertension; E66.3 Overweight; Z68.27 Body mass index [BMI] 27.0-27.9, adult; E78.5 Hyperlipidemia, unspecified; G47.33 Obstructive sleep apnea (adult) (pediatric); F17.210 Nicotine dependence, cigarettes, uncomplicated; Z86.16 Personal history of COVID-19; Z86.2 Personal history of diseases of the blood and blood-forming organs and certain disorders involving the immune mechanism; Z79.82 Long term (current) use of aspirin; Z79.899 Other long term (current) drug therapy; Z79.620 Long term (current) use of immunosuppressive biologic
CPT/HCPCS: 36415; 71046; 80053; 85025; 87637; 99283

== ENCOUNTER 2024-05-31 14:35 | Emergency (ER) | payer OTHER, SELFPAY ==
--- NOTE | 2024-05-31 14:39 | ED_ITS ---
HPI - URI/Sore Throat General Chief Complaint: Eye Problems Stated Complaint: Eye Pain Time Seen by Provider: 05/31/24 14:36 Source: patient Mode of arrival: ambulatory Limitations: no limitations History of Present Illness HPI Narrative: Norah is a 64-year-old female patient presenting to the clinic today with complaints of eye discomfort and drainage coming from the eye that started this morning.. She reports she woke up with her eye matted shut this morning. States when the air hits her eyes her eyes water. Has green and mucopurulent discharge. Conjunctiva is red. No injury. Denies any known foreign body in the eye MD elicited complaint: sore throat and nasal congestion Related Data Home Medications ?Medication ?Instructions ?Recorded ?Confirmed ?Last Taken ?Type cholecalciferol (vitamin D3) 125 5,000 unit PO DAILY 08/30/20 05/21/24 Unknown History mcg (5,000 unit) capsule risankizumab-rzaa 75 mg/0.83 mL 150 mg subcut . Q three-month 08/30/20 05/21/24 Unknown History subcutaneous syringe (Skyrizi) aspirin 81 mg tablet,delayed 81 mg PO DAILY 12/21/21 05/21/24 Unknown History release atorvastatin 40 mg tablet 80 mg PO DAILY 12/21/21 05/21/24 Unknown History budesonide 160 mcg-glycopyr 9 2 inh inhalation BID 05/21/24 05/21/24 Unknown History mcg-formot 4.8 mcg/actuation HFA inhaler (Breztri Aerosphere) Allergies Allergy/AdvReac Type Severity Reaction Status Date / Time levofloxacin Allergy Mild unknown Verified 05/31/24 14:40 clarithromycin Allergy Unknown unknown Verified 05/31/24 14:40 telithromycin Allergy Unknown unknown Verified 05/31/24 14:40 MICROFLEXIN Allergy Unknown unknown Uncoded 05/31/24 14:40 Review of Systems Review of Systems: Pertinent positives per HPI. Patient denies any fever, chills, rash, headache, visual changes, dizziness, shortness of breath, chest pain, palpitations, nausea, vomiting, diarrhea, constipation, abdominal pain, or any urinary issues. PMFSH Past Medical History Medical History BMI 27.0-27.9,adult Acute non-recurrent maxillary sinusitis Chronic right-sided low back pain with sciatica MRI of the lumbar spine on 10/11/2023 revealed diffuse [id number] spondylosis. Emphysema lung mild emphysema on screening CT lung scan on 10/18/2021. Folate deficiency Folic acid level low at 2.5 With hemoglobin 16.4 on 11/28/2022. Anemia hemoglobin 16.4 on 11/28/2022. hemoglobin 14.9 in the ER on 03/31/2024. Cough chest x-ray in ER 02/17/[address] of the chest 03/12/2023 reportedly normal. ENT evaluation 03/21/2023 with laryngoscopy unremarkable except for edema of the vocal folds. Fatigue COVID-19 approx 2.5 weeks ago Hypokalemia (11/20/22) potassium low at 2.7 in the ER with magnesium 2.2 on 11/20/2022. Potassium 4.2 on 11/28/2022. Chronic pain of left knee MRI of the left knee on 11/09/2022 with degenerative changes with chondromalacia of patella with normal meniscus. Acute bronchitis BMI 26.0-26.9,adult Overweight (BMI 25.0-29.9) Personal history of nicotine dependence Colon cancer screening Cologuard screening on 02/01/2022 was. Recheck in 3 years. Screening for lung cancer Vitamin D deficiency Level low at 23.4 with goal greater than 30 on 11/28/2022. Snoring CHING (obstructive sleep apnea) B12 deficiency Normal at 478 with hemoglobin 16.4 on 11/28/2022. Acute right-sided low back pain with sciatica X-ray of the lumbar spine on 06/09/2021 with diffuse osteopenia, mild scoliosis, significant degenerative disc disease at L5-S1 with moderate degenerative changes throughout. Acute right hip pain X-ray of the right hip on 06/09/2021 reveals mild osteoarthritis with severe lumbar spondylosis noted. Strain of right calf muscle BMI 31.0-31.9,adult Acute pain of right lower extremity BMI 30.0-30.9,adult Acute sinusitis, unspecified Hyperlipidemia Hypertension BMI 29.0-29.9,adult Biliary colic History of vaginal delivery x 2 Viral gastroenteritis Surgical History Surgical History History of myomectomy History of angioplasty History of hysterectomy Family History Family History Mother Hypertension Patient's mother is in good health Grandparent Acute myocardial infarction Family history of malignant melanoma Family history of lung cancer Family history of primary malignant neoplasm of liver Family history of malignant neoplasm of breast Father Family history of throat cancer Lung cancer Sibling Depression Social History Social History Smoking packs per day: 1 Smoking cigarettes per day: 20.0 Years smoked: 1 Smoking pack-years: 1.00 Smoking status: Current every day smoker Tobacco type: cigarettes Second hand tobacco smoke exposure: Yes Alcohol intake: never Substance use: never Substance use type: does not use Lack of Transportation: No Lack of Food: Never True Current Housing: I Have Housing Concerned About Future Housing: No Difficulty Paying Gas/Electric Bills: No Difficulty Paying for Meds: No Currently Unemployed: No Education: High School Diploma/GED Difficulty w/ Childcare or Family Care: No Living arrangements: with family Occupation/Education: occupation 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 There is no relevant family history pertinent to the patient complaint. Exam Narrative: General: Well-developed, well nourished, in no apparent distress Head: Normocephalic, atraumatic Eyes: Pupils equally round and reactive to light bilaterally, EOM intact, left sclera and conjunctive clear, right sclera and conjunctiva injected with green mucopurulent discharge, no discharge from the left eye, lids normal Ears: TMs intact and clear, ear canals clear, no drainage, grossly hearing normal. Nose: Nares patent, no discharge, no inflammation, no sinus tenderness. Mouth: Oral pharynx without lesions or masses, good dentition, MMM. Neck: Supple, trachea midline, no enlargement of anterior or posterior cervical nodes, no thyroid masses or goiter palpable. Cardio: Regular rate and rhythm, s1 and s2 normal, no murmur appreciated. Resp: Clear to auscultation bilaterally, no rhonchi, rales, wheezing or rubs Course Course Emergency Course: Portions of this record may have been created with voice recognition software. Level of Care: Express Care Visit Vital Signs Vital signs: Vital Signs Temperature 36.8 C 05/31/24 14:41 Pulse Rate 66 05/31/24 14:41 Respiratory Rate 16 05/31/24 14:41 Blood Pressure 109/57 L 05/31/24 14:41 Pulse Oximetry 100 05/31/24 14:41 Oxygen Delivery Room Air 05/31/24 14:41 Temperature 36.8 C 05/31/24 14:41 Pulse Rate 66 05/31/24 14:41 Respiratory Rate 16 05/31/24 14:41 Blood Pressure 109/57 L 05/31/24 14:41 Pulse Oximetry 100 05/31/24 14:41 Oxygen Delivery Room Air 05/31/24 14:41 Vital signs reviewed MDM - URI/Sore Throat MDM Narrative Medical decision making narrative: At the time of visit patient is resting comfortably on the exam table. Patient appears to be nontoxic. Plan: I suspect patient has right-sided conjunctivitis. Prescription for tobramycin eyedrops was sent to the pharmacy. Supportive measures were discussed with the patient and they voiced understanding discharge instructions and agrees to treatment plan. Return precautions reviewed Differential Diagnosis Differential diagnosis: Likely upper respiratory infection, otitis media, sinusitis, viral infection, bronchitis, influenza, pharyngitis and other (COVID) Discharge Plan Discharge Clinical Impression: Acute conjunctivitis of right eye Qualifiers: Acute conjunctivitis type: bacterial Qualified Code(s): H10.31 - Unspecified acute conjunctivitis, right eye Patient Disposition: Home, Self-Care Condition: Stable Instructions: Antibiotic Form, Conjunctivitis (ED) Additional Instructions: Conjunctivitis is considered contagious for 24 hours while on the antibiotic. Practice good hand washing techniques Avoid touching eyes Instill eyedrops as prescribed-tobramycin May use warm moist washcloth to help remove eye discharge If eyes are matted shut-do not pry eyes open-use a warm moist cloth to loosen matting and wipe matter away from eye May take Tylenol/Motrin as needed for pain or fever May take Benadryl as needed for itching Follow-up with your PCP in 3-5 days if symptoms persist or sooner if they worsen Go to the emergency room if you develop any fever that is not controlled by Tylenol or Motrin, loss of vision, eye pain, increase eye swelling,visual changes, headache, confusion, lethargy, weakness, chest pain, or shortness of breath. Patient Language: Swiss Prescriptions: New tobramycin 0.3 % drops 1 drp RIGHT EYE Q4H 7 Days Qty: 5 0RF No Action aspirin 81 mg tablet,delayed release (DR/EC) 81 mg PO DAILY atorvastatin 40 mg tablet 80 mg PO DAILY Skyrizi 75 mg/0.83 mL syringe 150 mg subcut . Q three-month cholecalciferol (vitamin D3) 125 mcg (5,000 unit) capsule 5,000 unit PO DAILY albuterol sulfate [Ventolin HFA] 90 mcg/actuation HFA aerosol inhaler 2 inh inhalation Q4H PRN (Reason: shortness of breath or wheezing) Qty: 8.5 3RF Breztri Aerosphere 160-9-4.8 mcg/actuation HFA aerosol inhaler 2 inh inhalation BID Patient Comments: sample given 05/21/2024 for 1 week. metoprolol tartrate 25 mg tablet 12.5 mg PO BID Qty: 90 3RF paroxetine HCl 20 mg tablet 20 mg PO DAILY Qty: 90 3RF ferrous sulfate [Feosol] 325 mg (65 mg iron) tablet 325 mg PO DAILY Qty: 90 3RF folic acid 1 mg tablet 1 mg PO DAILY Qty: 90 3RF losartan-hydrochlorothiazide 100-12.5 mg tablet 1 tablet PO DAILY Qty: 90 3RF pantoprazole 40 mg tablet,delayed release (DR/EC) 40 mg PO QAM Qty: 90 3RF Follow-up/Referrals: PHYSICIAN,RISK SPECIALIST [Primary Care Provider] - Time of Disposition: 14:46 Quality NIHSS Nursing Documentation ED NIHSS nursing documentation: reviewed/agree
[2024-05-31 14:41] VITALS: BP 109/57; PULSE 66; RESP 16; TEMP 36.8; O2SAT 100
== END 2024-05-31 14:50 | disposition home or self-care (01) ==
PROVIDERS: Emergency Provider Nurse Practitioner Family
DX: H10.31 Unspecified acute conjunctivitis, right eye (principal); F17.210 Nicotine dependence, cigarettes, uncomplicated; J43.9 Emphysema, unspecified; I10 Essential (primary) hypertension; E78.5 Hyperlipidemia, unspecified; D64.9 Anemia, unspecified; E55.9 Vitamin D deficiency, unspecified; E53.8 Deficiency of other specified B group vitamins; Z86.16 Personal history of COVID-19; Z79.82 Long term (current) use of aspirin
CPT/HCPCS: 99213; G0463

== ENCOUNTER 2025-02-07 15:22 | Emergency (ER) | payer OTHER, SELFPAY ==
[2025-02-07 15:40] VITALS: BP 110/75; PULSE 63; RESP 18; TEMP 37.1; O2SAT 98
--- NOTE | 2025-02-07 16:02 | ED.URI ---
HPI - URI/Sore Throat General Chief Complaint: Upper Respiratory Infection Stated Complaint: Cough Time Seen by Provider: 02/07/25 15:24 Source: patient Mode of arrival: ambulatory Limitations: no limitations History of Present Illness HPI Narrative: patient is a 64-year-old female who presents with 3 days congestion, sinus pressure and cough. Patient was treated with cefdinir 01/15 for sinus infection. Denies any fever, chills, nausea, vomiting, diarrhea. Related Data Home Medications ?Medication ?Instructions ?Recorded ?Confirmed ?Last Taken ?Type cholecalciferol (vitamin D3) 125 5,000 unit PO DAILY 08/30/20 01/15/25 Unknown History mcg (5,000 unit) capsule risankizumab-rzaa 75 mg/0.83 mL 150 mg subcut . Q three-month 08/30/20 01/15/25 Unknown History subcutaneous syringe (Skyrizi) aspirin 81 mg tablet,delayed 81 mg PO DAILY 12/21/21 01/15/25 Unknown History release atorvastatin 40 mg tablet 80 mg PO DAILY 12/21/21 01/15/25 Unknown History Allergies Allergy/AdvReac Type Severity Reaction Status Date / Time levofloxacin Allergy Mild unknown Verified 05/31/24 14:40 clarithromycin Allergy Unknown unknown Verified 05/31/24 14:40 telithromycin Allergy Unknown unknown Verified 05/31/24 14:40 MICROFLEXIN Allergy Unknown unknown Uncoded 05/31/24 14:40 Review of Systems Review of Systems: All systems reviewed & are unremarkable except as noted in HPI and below Constitutional: Constitutional: Denies chills, Denies fatigue, Denies fever(s), Denies headache(s), Denies malaise and Denies weakness Eyes: Eyes: Denies blurry vision, Denies itchy eyes and Denies loss of vision ENT: Denies otalgia, Denies headache(s), Reports nasal congestion, Denies sinus pain, Reports sinus pressure and Denies sore throat Cardiovascular: Cardiovascular: Denies chest pain, Denies irregular heart rhythm and Denies dyspnea Respiratory: Respiratory: Reports cough and Denies dyspnea Gastrointestinal: Gastrointestinal: Denies abdominal pain, Denies diarrhea, Denies nausea and Denies vomiting Musculoskeletal: Musculoskeletal: Denies back pain, Denies myalgias and Denies arthralgias Integumentary/Breasts: Skin/Breast: Denies pruritus and Denies rash Neurologic: Denies headache(s), Denies loss of vision and Denies weakness Psychiatric: Psychiatric: Reports no additional psychiatric complaints Endocrine: Endocrine: Denies fatigue Allergic/Immunologic: Allergic/Immunologic: Denies itchy eyes PMFSH Past Medical History Medical History Erythrocytosis Leukocytosis Elevated ferritin ferritin 700 with iron 53 with 18% saturation on 01/10/2025. BMI 27.0-27.9,adult Acute non-recurrent maxillary sinusitis Chronic right-sided low back pain with sciatica MRI of the lumbar spine on 10/11/2023 revealed diffuse [id number] spondylosis. Emphysema lung mild emphysema on screening CT lung scan on 10/18/2021. Folate deficiency Folic acid level low at 2.5 With hemoglobin 16.4 on 11/28/2022. Normal at 14.0 on 01/10/2025. Anemia hemoglobin 16.4 on 11/28/2022. hemoglobin 14.9 in the ER on 03/31/2024. Hemoglobin 16.3 on 01/10/2025. Cough chest x-ray in ER 02/17/[address] of the chest 03/12/2023 reportedly normal. ENT evaluation 03/21/2023 with laryngoscopy unremarkable except for edema of the vocal folds. Fatigue COVID-19 approx 2.5 weeks ago Hypokalemia (11/20/22) potassium low at 2.7 in the ER with magnesium 2.2 on 11/20/2022. Potassium 4.2 on 11/28/2022. Normal at 4.2 on 01/10/2025. Chronic pain of left knee MRI of the left knee on 11/09/2022 with degenerative changes with chondromalacia of patella with normal meniscus. Acute bronchitis BMI 26.0-26.9,adult Overweight (BMI 25.0-29.9) Personal history of nicotine dependence Colon cancer screening Cologuard screening on 02/01/2022 was. Recheck in 3 years. Screening for lung cancer Vitamin D deficiency Level low at 23.4 with goal greater than 30 on 11/28/2022. Level normal at 53 on 01/10/2025. Snoring CHING (obstructive sleep apnea) B12 deficiency Normal at 478 with hemoglobin 16.4 on 11/28/2022. Level normal at 433 with folic acid 14.0 hemoglobin 16.3 on 01/10/2025. Acute right-sided low back pain with sciatica X-ray of the lumbar spine on 06/09/2021 with diffuse osteopenia, mild scoliosis, significant degenerative disc disease at L5-S1 with moderate degenerative changes throughout. Acute right hip pain X-ray of the right hip on 06/09/2021 reveals mild osteoarthritis with severe lumbar spondylosis noted. Strain of right calf muscle BMI 31.0-31.9,adult Acute pain of right lower extremity BMI 30.0-30.9,adult Acute sinusitis, unspecified Hyperlipidemia Hypertension BMI 29.0-29.9,adult Biliary colic History of vaginal delivery x 2 Viral gastroenteritis Surgical History Surgical History History of myomectomy History of angioplasty History of hysterectomy Family History Family History Mother Hypertension Patient's mother is in good health Grandparent Acute myocardial infarction Family history of malignant melanoma Family history of lung cancer Family history of primary malignant neoplasm of liver Family history of malignant neoplasm of breast Father Family history of throat cancer Lung cancer Sibling Depression Social History Social History Smoking packs per day: 1 Smoking cigarettes per day: 20.0 Years smoked: 50 Smoking pack-years: 50.00 Smoking status: Current every day smoker Tobacco type: cigarettes Second hand tobacco smoke exposure: Yes Alcohol intake: never Substance use: never Substance use type: does not use Lack of Transportation: No Lack of Food: Never True Current Housing: I Have Housing Concerned About Future Housing: No Difficulty Paying Gas/Electric Bills: No Difficulty Paying for Meds: No Currently Unemployed: No Education: High School Diploma/GED Difficulty w/ Childcare or Family Care: No Living arrangements: with family Occupation/Education: occupation 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 There is no relevant family history pertinent to the presenting complaint. Exam Const: General: cooperative, healthy appearing, comfortable, no acute distress and well nourished Nutritional Appearance: well nourished Orientation/consciousness: patient oriented x3 Limitations: no limitations HENMT: Head: normal to inspection, normocephalic and atraumatic Ears: hearing grossly normal bilaterally, external ears normal, TM's normal bilaterally, EAC's normal and no periauricular adenopathy Face/Nose/Sinus: Normal external nose present, Abnormal mucous membranes and turbinates present erythematous bilateral and diffuse, normal facial exam, face symmetric and Facial tenderness on exam of face and sinuses Face and sinus: normal facial exam and face symmetric Mouth: Yes Normal oral and palatal mucosa present, Yes lip normal, Yes tongue normal, Yes Normal salivary glands and ducts present, Yes oropharynx normal and Yes moist mucous membranes Teeth and gingiva: dentition normal Throat: posterior oropharynx normal, tonsils normal and uvula midline Eyes: General: appearance normal, both eyes and all related structures Alignment and Position: alignment normal and position normal Periorbital: periorbital findings normal Eyelids: eyelids normal Pupils: Equal, round and reactive pupils present Neck: Neck: normal visual inspection, full ROM, no lymphadenopathy and supple Chest: Chest palpation & inspection: normal inspection of the chest and normal palpation of entire chest wall Resp: Effort & Inspection: normal respiratory effort and able to speak in complete sentences Auscultation: clear to auscultation bilaterally, no crackles, no rales, no rhonchi and no wheezes Cardio: Rate: regular rate Rhythm: regular rhythm Heart sounds: S1 normal heart sound present and S2 normal heart sound present GI: Inspection: normal to inspection Skin: General skin exam: normal color and no rashes or lesions noted Neuro: General: patient oriented x3 and moves all extremities Cranial nerves: Yes Equal, round and reactive pupils present Speech: normal speech Gait exam (Neuro): Normal gait present Extrem: General: normal to inspection, full ROM and no edema Psych: Appearance: grossly normal and well kempt Mental Status: mental status grossly normal Speech and movement: Normal speech and movement present Affect: normal affect Attitude: cooperative Thought process: Normal thought process present Course Course Emergency Course: Patient is aware of diagnosis, understands and agrees to treatment plan. Anticipatory guidance given. Patient agrees to follow-up as directed and is aware of reasons to seek care at the emergency department. Portions of this record may have been created with voice recognition software Level of Care: Express Care Visit Vital Signs Vital signs: Vital Signs Temperature 37.1 C 02/07/25 15:40 Pulse Rate 63 02/07/25 15:40 Respiratory Rate 18 02/07/25 15:40 Blood Pressure 110/75 02/07/25 15:40 Pulse Oximetry 98 02/07/25 15:40 Temperature 37.1 C 02/07/25 15:40 Pulse Rate 63 02/07/25 15:40 Respiratory Rate 18 02/07/25 15:40 Blood Pressure 110/75 02/07/25 15:40 Pulse Oximetry 98 02/07/25 15:[address] [facility] MDM Narrative Medical decision making narrative: Will treat with steroids, Tessalon Perles, inhaler and albuterol inhaler. Pt well hydrated appearing, in no respiratory distress, hemodynamically stable. Recommend supportive care. The patient is stable at time of discharge the clinical impression was discussed and the patient was given the opportunity to ask questions, which were addressed as completely as possible given the information available at present. Anticipatory guidance and return to care precautions were discussed and the importance of primary care follow-up was stressed and encouraged. The patient voiced understanding of the plan, indications to return, and the need for follow-up. Exam findings show no acute concerns or changes Patient is appropriate for outpatient treatment and follow-up. Differential Diagnosis Differential Diagnosis: Differential diagnosis considered: Raymond virus, strep pharyngitis, allergic rhinitis, upper respiratory tract infection, sinusitis, rhinosinusitis, nasopharyngitis. viral pharyngitis, otitis media, otitis externa, otitis effusion, foreign body, cerumen impaction, viral syndrome, and influenza. Medical Records I have reviewed the following patient records and this information was taken into consideration when formulating the assessment and plan.: previous clinic visits Discharge Plan Discharge Clinical Impression: Upper respiratory infection with cough and congestion Patient Disposition: Home Condition: Stable Instructions: Upper Respiratory Infection (ED) Additional Instructions: Take steroids per package instructions. Use Tessalon Perles as needed for cough. Use inhaler with spacer as needed. Other symptomatic treatments include: -Alternate Tylenol and Motrin per package directions for fever or pain: Tylenol 650-1000mg by mouth every 4-6 hours. Do not exceed 4000mg in 24 hours. Advil (Ibuprofen) 600 mg by mouth every 6 hours. Do not exceed 2400mg in 24 hours. 8 AM: Tylenol 11 AM: Ibuprofen 2 PM: Tylenol 5 PM: Ibuprofen 8 PM: Tylenol 11 PM: Ibuprofen 2 AM: Tylenol 5 AM: Ibuprofen -Antihistamine medication such as Benadryl at night and Zyrtec/Claritin/Renetta during the day can help improve symptoms. -Use Flonase twice a day for 5 days then daily to help reduce the inflammation and dry up your sinuses. -You can also use Sudafed or Mucinex. Be sure to drink plenty of water with these medications at least 8 ounces with every dose and it is important to drink 8 to 10 glasses of water per day. Water is a natural decongestant -Eat and drink things that are easy to swallow, like tea or soup, or popsicles. -Oral rinses such as: Salt water gargles and/or may use topical anesthetic (eg. Chloraseptic spray) or lozenges to relieve dryness or throat pain). -Frequent hand washing or hand dance professor is one of the best ways to prevent spread of infection. -Using a vaporizer or humidifier at night will also help thin secretions and help with coughing up phlegm. Call your Primary Care Doctor and make a follow-up appointment in 3 days. If your cough worsens, you develop a fever greater than 103, you develop shaking chills, a fast heartbeat, trouble breathing and/or feel you are are breathing much faster than usual, call your Primary Care Doctor or go to the ER. Patient Language: Yoruba Prescriptions: New benzonatate 100 mg capsule 100 mg PO BID PRN (Reason: cough) Qty: 14 0RF methylprednisolone [Medrol (David)] 4 mg tablets,dose pack See Rx Instructions .ROUTE .COMPLEX Qty: 21 0RF Rx Instructions: orally per package directions albuterol sulfate 90 mcg/actuation HFA aerosol inhaler 2 puff inhalation QID PRN (Reason: shortness of breath or wheezing) Qty: 6.7 0RF fluticasone propionate [Flonase Allergy Relief] 50 mcg/actuation spray,suspension 1 spray intranasal DAILY Qty: 16 0RF Rx Instructions: administer into each nostril (DME) Aerochamber MV Spacer See Rx Instructions .Route Qty: 1 0RF Rx Instructions: As directed No Action aspirin 81 mg tablet,delayed release (DR/EC) 81 mg PO DAILY atorvastatin 40 mg tablet 80 mg PO DAILY benzonatate 200 mg capsule 200 mg PO TID PRN (Reason: cough) Qty: 30 0RF Skyrizi 75 mg/0.83 mL syringe 150 mg subcut . Q three-month cholecalciferol (vitamin D3) 125 mcg (5,000 unit) capsule 5,000 unit PO DAILY albuterol sulfate [Ventolin HFA] 90 mcg/actuation HFA aerosol inhaler 2 inh inhalation Q4H PRN (Reason: shortness of breath or wheezing) Qty: 8.5 3RF paroxetine HCl 20 mg tablet 20 mg PO DAILY Qty: 90 3RF metoprolol tartrate 25 mg tablet 12.5 mg PO BID Qty: 90 3RF folic acid 1 mg tablet 1 mg PO DAILY Qty: 90 3RF Follow-up/Referrals: Deondre Salazar MD [Primary Care Provider, Family Practice] - 3 Days Time of Disposition: 16:14
== END 2025-02-07 16:19 | disposition home or self-care (01) ==
PROVIDERS: Emergency Provider Nurse Practitioner Family; PCP Family Medicine
DX: J06.9 Acute upper respiratory infection, unspecified (principal); I10 Essential (primary) hypertension; E78.5 Hyperlipidemia, unspecified; E55.9 Vitamin D deficiency, unspecified; Z79.82 Long term (current) use of aspirin; E53.8 Deficiency of other specified B group vitamins; F17.210 Nicotine dependence, cigarettes, uncomplicated; Z86.16 Personal history of COVID-19
CPT/HCPCS: 99213; G0463

== ENCOUNTER 2025-02-15 08:59 | Emergency (ER) | payer OTHER, SELFPAY ==
--- NOTE | ~2025-02-15 | XR_ITS ---
Examination: XR elbow LT min 3V Clinical History: Pain x 1 day on ulnar side of elbow Comparison: None Technique: 4 views left elbow Findings/impression: 1. No fracture, dislocation, or other acute abnormality identified. 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
[2025-02-15 09:14] VITALS: BP 117/68; PULSE 64; RESP 16; TEMP 36.6; O2SAT 98
--- NOTE | 2025-02-15 09:56 | ED.GENADULT ---
HPI - General Adult General Chief complaint: Extremity Injury, Upper Stated complaint: L ARM PAIN Time Seen by Provider: 02/15/25 09:56 Source: patient Mode of arrival: ambulatory Limitations: no limitations History of Present Illness HPI narrative: 64-year-old female patient presents to [facility] with complaints of left elbow pain that started yesterday. Patient states she was just doing some light housework but denies any specific injury denies hitting her elbow at all that she is aware of. Patient states it was uncomfortable to sleep last night. Patient states she has been taking some Tylenol for the pain denies icing it or denies wrapping it at this time. Related Data Home Medications ?Medication ?Instructions ?Recorded ?Confirmed ?Last Taken ?Type cholecalciferol (vitamin D3) 125 5,000 unit PO DAILY 08/30/20 01/15/25 Unknown History mcg (5,000 unit) capsule risankizumab-rzaa 75 mg/0.83 mL 150 mg subcut . Q three-month 08/30/20 01/15/25 Unknown History subcutaneous syringe (Skyrizi) aspirin 81 mg tablet,delayed 81 mg PO DAILY 12/21/21 01/15/25 Unknown History release atorvastatin 40 mg tablet 80 mg PO DAILY 12/21/21 01/15/25 Unknown History Allergies Allergy/AdvReac Type Severity Reaction Status Date / Time levofloxacin Allergy Mild unknown Verified 05/31/24 14:40 clarithromycin Allergy Unknown unknown Verified 05/31/24 14:40 telithromycin Allergy Unknown unknown Verified 05/31/24 14:40 MICROFLEXIN Allergy Unknown unknown Uncoded 05/31/24 14:40 Review of Systems Review of Systems: CONSTITUTIONAL: Denies fever, chills, or sweats. EYES: Denies visual changes, redness, or discharge. ENT: Denies rhinorrhea, congestion, sore throat, or otalgia. CARDIOVASCULAR: Denies chest pain, palpitations, or edema. RESPIRATORY: Denies cough or dyspnea. GASTROINTESTINAL: Denies abdominal pain, nausea, vomiting, or diarrhea. GENITOURINARY: Denies dysuria or hematuria. SKIN: Denies rash or itching. MUSCULOSKELETAL: Denies back pain, joint pain, or myalgia. Positive left elbow pain x1 day NEUROLOGIC: Denies headache, numbness, or weakness. PSYCHIATRIC: Denies anxiety or depression. [facility] Past Medical History Medical History Erythrocytosis Leukocytosis Elevated ferritin ferritin 700 with iron 53 with 18% saturation on 01/10/2025. BMI 27.0-27.9,adult Acute non-recurrent maxillary sinusitis Chronic right-sided low back pain with sciatica MRI of the lumbar spine on 10/11/2023 revealed diffuse [id number] spondylosis. Emphysema lung mild emphysema on screening CT lung scan on 10/18/2021. Folate deficiency Folic acid level low at 2.5 With hemoglobin 16.4 on 11/28/2022. Normal at 14.0 on 01/10/2025. Anemia hemoglobin 16.4 on 11/28/2022. hemoglobin 14.9 in the ER on 03/31/2024. Hemoglobin 16.3 on 01/10/2025. Cough chest x-ray in ER 02/17/[address] of the chest 03/12/2023 reportedly normal. ENT evaluation 03/21/2023 with laryngoscopy unremarkable except for edema of the vocal folds. Fatigue COVID-19 approx 2.5 weeks ago Hypokalemia (11/20/22) potassium low at 2.7 in the ER with magnesium 2.2 on 11/20/2022. Potassium 4.2 on 11/28/2022. Normal at 4.2 on 01/10/2025. Chronic pain of left knee MRI of the left knee on 11/09/2022 with degenerative changes with chondromalacia of patella with normal meniscus. Acute bronchitis BMI 26.0-26.9,adult Overweight (BMI 25.0-29.9) Personal history of nicotine dependence Colon cancer screening Cologuard screening on 02/01/2022 was. Recheck in 3 years. Screening for lung cancer Vitamin D deficiency Level low at 23.4 with goal greater than 30 on 11/28/2022. Level normal at 53 on 01/10/2025. Snoring CHING (obstructive sleep apnea) B12 deficiency Normal at 478 with hemoglobin 16.4 on 11/28/2022. Level normal at 433 with folic acid 14.0 hemoglobin 16.3 on 01/10/2025. Acute right-sided low back pain with sciatica X-ray of the lumbar spine on 06/09/2021 with diffuse osteopenia, mild scoliosis, significant degenerative disc disease at L5-S1 with moderate degenerative changes throughout. Acute right hip pain X-ray of the right hip on 06/09/2021 reveals mild osteoarthritis with severe lumbar spondylosis noted. Strain of right calf muscle BMI 31.0-31.9,adult Acute pain of right lower extremity BMI 30.0-30.9,adult Acute sinusitis, unspecified Hyperlipidemia Hypertension BMI 29.0-29.9,adult Biliary colic History of vaginal delivery x 2 Viral gastroenteritis Surgical History Surgical History History of myomectomy History of angioplasty History of hysterectomy Family History Family History Mother Hypertension Patient's mother is in good health Grandparent Acute myocardial infarction Family history of malignant melanoma Family history of lung cancer Family history of primary malignant neoplasm of liver Family history of malignant neoplasm of breast Father Family history of throat cancer Lung cancer Sibling Depression Social History Social History Smoking packs per day: 1 Smoking cigarettes per day: 20.0 Years smoked: 50 Smoking pack-years: 50.00 Smoking status: Current every day smoker Tobacco type: cigarettes Second hand tobacco smoke exposure: Yes Alcohol intake: never Substance use: never Substance use type: does not use Lack of Transportation: No Lack of Food: Never True Current Housing: I Have Housing Concerned About Future Housing: No Difficulty Paying Gas/Electric Bills: No Difficulty Paying for Meds: No Currently Unemployed: No Education: High School Diploma/GED Difficulty w/ Childcare or Family Care: No Living arrangements: with family Occupation/Education: occupation 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 There is no relevant family history pertinent to the presenting complaint. Exam Narrative: GENERAL: Well-appearing, well-nourished, and in no acute distress. HEAD: Normocephalic, atraumatic. EYES: PERRLA and EOMI. ENT: Nares clear, no rhinorrhea or epistaxis. Mucous membranes moist. NECK: Supple. No lymphadenopathy CHEST: Clear to auscultation. No respiratory distress. HEART: Regular rate and rhythm. No murmur heard. Normal peripheral pulses. ABDOMEN: Soft, nontender, nondistended, normal active bowel sounds. EXTREMITIES: The L elbow is without obvious asymmetry or deformity when compared to the R elbow. No obvious surface trauma, ecchymosis or soft tissue swelling. No bony tenderness to palpation of the lateral or medial epicondyle, olecranon, or radial head. No epicondylar or axillary lymphadenopathy. Normal flexion, pain with extension on the ulnar side, pain with supination and pronation on the ulnar side. decrease muscle strength on left. Intact motor and sensation of ulnar, median, and radial nerves. SKIN: Warm, dry, no rash. NEURO: No focal deficits. Alert and oriented x3. Course Course Level of Care: Express Care Visit Reevaluation(s) Reevaluation #1: re-evaluated patient notified her that the x-ray is negative for any acute bone abnormalities. Discussed with patient to call her doctor tomorrow for follow-up. Continue to take Tylenol for the pain we will Dio wrap the elbow and encouraged her to ice it to help with any inflammation. Patient also recommended using some icy Hot or Biofreeze to the area to help with the pain. Patient verbalized understanding denies any other questions or concerns at this time. Date: 02/15/25 Time: 10:53 Vital Signs Vital signs: Vital Signs Temperature 36.6 C 02/15/25 09:14 Pulse Rate 64 02/15/25 09:14 Respiratory Rate 16 02/15/25 09:14 Blood Pressure 117/68 02/15/25 09:14 Pulse Oximetry 98 02/15/25 09:14 Oxygen Delivery Room Air 02/15/25 09:14 Temperature 36.6 C 02/15/25 09:14 Pulse Rate 64 02/15/25 09:14 Respiratory Rate 16 02/15/25 09:14 Blood Pressure 117/68 02/15/25 09:14 Pulse Oximetry 98 02/15/25 09:14 Oxygen Delivery Room Air 02/15/25 09:14 Vital signs reviewed. MDM MDM Narrative Medical decision making narrative: plan care patient's x-ray of the left elbow to rule out any acute bony injury. Discussed with patient if this is negative most likely will discharge home with an Dio wrap and encouraged icing and Tylenol for pain and have her follow-up with her primary doctor to see about possible physical therapy. Patient is aware the plan of care at this time. Differential Diagnosis Differential Diagnosis: Differential diagnosis: Elbow strain, subluxed radial head, growth plate fracture,supracondylar fracture, subsequent compartment syndrome, posterior dislocation, anterior dislocation, radial head fracture, anterior fat pad. Imaging Data Radiologist's impression: [address] [place] [address] XRay Report Signed Patient: Norah Wu : 1960 MR#: [id number] Age: 64 Acct:[id number] Loc: [facility] ADM Date: 02/15/[address]: Ordering Physician: Mariah Wolff APRN Date of Service: 02/15/25 Procedure(s): XR elbow LT min 3V Accession Number(s): [id number] cc: Deondre Salazar MD; Mariah Wolff PROFESSOR OF ARCHAEOLOGY~ Examination: XR elbow LT min 3V Clinical History: Pain x 1 day on ulnar side of elbow Comparison: None Technique: 4 views left elbow Findings/impression: 1. No fracture, dislocation, or other acute abnormality identified. Reviewed, dictated and finalized at location . 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 Critical Care Time Critical Care Time: No Discharge Plan Discharge Clinical Impression: Elbow pain, left Patient Disposition: Home Condition: Stable Instructions: Antibiotic Form, Elbow Strain (ED) Additional Instructions: Ice to the area 20-30 minutes 4-6 times a day Elevate above heart Elastic wrap or orthopedic splint as directed for comfort for the next 5-7 days Tylenol for lesser pain Ibuprofen regularly for the next 2-3 days for the inflammation Follow up with your primary care provider if the condition is not improving within 1 week or sooner if the Condition worsens with numbness, tingling, decrease sensation with weakness to seek ER. Patient Language: Welsh Prescriptions: No Action aspirin 81 mg tablet,delayed release (DR/EC) 81 mg PO DAILY atorvastatin 40 mg tablet 80 mg PO DAILY albuterol sulfate 90 mcg/actuation HFA aerosol inhaler 2 puff inhalation QID PRN (Reason: shortness of breath or wheezing) Qty: 6.7 0RF fluticasone propionate [Flonase Allergy Relief] 50 mcg/actuation spray,suspension 1 spray intranasal DAILY Qty: 16 0RF Rx Instructions: administer into each nostril (DME) Aerochamber MV Spacer See Rx Instructions .Route Qty: 1 0RF Rx Instructions: As directed Skyrizi 75 mg/0.83 mL syringe 150 mg subcut . Q three-month cholecalciferol (vitamin D3) 125 mcg (5,000 unit) capsule 5,000 unit PO DAILY albuterol sulfate [Ventolin HFA] 90 mcg/actuation HFA aerosol inhaler 2 inh inhalation Q4H PRN (Reason: shortness of breath or wheezing) Qty: 8.5 3RF paroxetine HCl 20 mg tablet 20 mg PO DAILY Qty: 90 3RF metoprolol tartrate 25 mg tablet 12.5 mg PO BID Qty: 90 3RF folic acid 1 mg tablet 1 mg PO DAILY Qty: 90 3RF Follow-up/Referrals: Deondre Salazar MD [Primary Care Provider, Family Practice] Time of Disposition: 10:51
== END 2025-02-15 10:57 | disposition home or self-care (01) ==
PROVIDERS: Emergency Provider Nurse Practitioner Family; PCP Family Medicine
DX: M25.522 Pain in left elbow (principal); F17.210 Nicotine dependence, cigarettes, uncomplicated; I10 Essential (primary) hypertension; E78.5 Hyperlipidemia, unspecified; E55.9 Vitamin D deficiency, unspecified; E53.8 Deficiency of other specified B group vitamins; Z86.16 Personal history of COVID-19
CPT/HCPCS: 73080; 99213; G0463